=== PATIENT | male | born 1950 | race Caucasian/White ===

== ENCOUNTER 2022-11-13 08:30 | Inpatient (IN) ==
[2022-11-13] MEDS ORDERED: MoRPHine SULFATE 4 MG/ML 1 ML CARP\\VIAL IV STA (08:38)
[2022-11-13] MEDS ORDERED: ONDANSETRON INJ 2 MG/ML 2 ML VIAL IV STA (08:38)
[2022-11-13] MEDS ORDERED: SODIUM CHLORIDE 0.9% 1000ML 1,000 ML IV STA (08:38)
[2022-11-13] MEDS ORDERED: methylPREDNISolone 125 MG/2 ML VIAL IV STA (08:38)
--- NOTE | 2022-11-13 08:41 | Emergency Department Note ---
Impression & Plan Ambulatory dysfunction ADMIT ED Provider Note HPI: The patient is a 72-year-old gentleman with history of osteoarthritis, hypertension, who presents emergency department chief complaint of arthralgias. Patient states when he woke up this morning he had some intense pain in his bilateral ankles, bilateral knees, and bilateral wrist. He states it felt similar to pain he has had in the past with gout. Patient states yesterday his pain began he was using crutches to get around the house, today he was unable to use the crutches because of the pain he had in his various joints. Patient states he has been avoiding alcohol and certain foods to prevent gout flares. On arrival here to the ED the patient is alert, he is mildly tachycardic, noted to be febrile with temperature of 38.5, but otherwise in no acute distress. ROS: - Per HPI *Outpatient medications and allergy history reviewed. *Pertinent external medical records reviewed. PE: General: Alert, no acute distress HEENT: Normocephalic, trachea midline, full range of motion of the cervical sp ine without limitation or pain Eyes: Extraocular eye movement is intact, no scleral erythema Pulmonary: Clear to auscultation bilaterally, no wheezing Cardio: Regular rate and rhythm GI: Abdomen is soft to palpation : No suprapubic tenderness MSK: No evidence of trauma or malformation of the extremities, mild swelling of the right knee comparison to the left, no overlying erythema, range of motion is intact Skin: No evidence of rash Neuro: Alert, no focal deficits, symmetrical facial movements are appreciated, patient ambulates all extremities spontaneously Psychiatric: Cooperative equipment monitor phototypesetting: (As interpreted by myself): - An order was placed for continuous cardiac monitoring - Patient was noted to be in sinus rhythm with a rate of 95 Interventions provided in ED: -IV Solu-Medrol, Tylenol Differential Diagnosis: Gout flare, Lyme arthritis, osteoarthritis, sepsis, Warnicke's encephalopathy, acute on chronic dementia symptoms, hepatic encephalopathy, amongst other potential pathologies. Medical Decision Making: The patient is a 72-year-old gentleman who presented to the emergency department with multiple issues, patient originally arrived stating that he had arthralgias in his bilateral ankles, bilateral knees, and bilateral wrist. Aside from some chronic appearing swelling of the right knee consistent with osteoarthritis, physical exam is unremarkable for any evidence of septic arthritis. Range of motion is intact, no overlying erythema or warmth to any of the patient's joints. Patient was initially given a dose of IV Solu-Medrol as he had suspi cion for gout, given the location in multiple joints without any significant findings on physical exam I do not think this represents acute gout flare IV was established and lab work initiated, lab work does not show any evidence of leukocytosis, patient was later noted to have fever of 38.5 when he arrived. He denies any history of fevers at home and states that he is surprised by this. He does not have a headache, he answers my questions appropriately but is a poor historian. Upon review of his outpatient records, patient does have a history of drinking daily, no documented history of alcohol abuse but there are prescriptions in the chart for thiamine and folic acid. Patient states he does not know why these were ever prescribed to him. Lyme testing is negative, patient was given oral Tylenol and fever down trended. CT imaging of the head was obtained that shows no evidence of any acute intracranial process, he does have some involutional changes. Patient's friend and employer later arrived at the bedside, states he has concerns about the patient's ability to take care of himself at home recently, he has had chronic ambulatory dysfunction that seems to been worsening, upon review of his outpatient charts this has been an issue for him in regards to his osteoarthritis. He notes that the patient did have some feces on the floor in his apartment, patient states this is because he was using crutches and cannot get to the restroom. Unclear origin for the patient's fever at this time as his viral panel is also negative, urinalysis is pending as the patient stated he did not feel that he could urinate for us in the ED. Denies any recent dysuria. He seems to exhibit some confusion when asked about his historical issues, he is alert and oriented x3 here in the ED however, ammonia was obtained and is within normal limits. I do not feel the patient is safe for discharge at this time and he is actually in agreement, states he is having ambulatory issues and would like to be admitted to the hospital for further management, PT OT consultation, and follow-up on blood cultures. We will avoid initiating prophylactic antibiotics without known source for potential infection. Chest x-ray does not show any acute disease. Urinalysis is pending, patient and his friend at the bedside are in agreement to the above plan, case was discussed with the on-call midlevel provider for [facility] Hospitalist service, Georgina Garay, patient was placed for admission in stable condition. Consultants: Hospitalist service, [facility] Disposition discussion held by myself with: Patient and friend at the bedside Diagnosis: 1. Ambulatory dysfunction, acute 2. Joint pain/arthralgias, history of osteoarthritis 3. Fever of unknown origin 4. Inability to accomplish activities of daily living Disposition: Admission Polo Savage DO Emergency Medicine Past Med/Surg History Social History Smoking Status: Never smoker Preferred Language: Bengali Feels Safe at Home: Yes Allergies Allergies Allergy/AdvReac Type Severity Reaction Status Date / Time Sulfa (Sulfonamide Allergy Unknown ? Verified 11/13/22 12:57 Antibiotics) Home Meds Home Medications Medication Instructions Recorded Confirmed Naproxen (Aleve) 220 mg PO UD PRN Pain #0 tabs 02/15/15 allopurinol 100 mg tablet 100 mg PO QAM 11/13/22 11/13/22 Previous Rx's Medication Instructions Recorded ASPIRIN (ASPIRIN 81) 81 mg PO QAM 30 days ##0 02/17/15 BLOOD PRESSURE MONITORING unit ##1 02/17/15 (SPHYGMOMANOMETER ANEROID) Folic Acid 1 mg PO QAM 30 days #0 tabs 02/17/15 Lisinopril 10 mg PO QAM 30 days #0 tabs 02/17/15 METOPROLOL TARTRATE (LOPRESSOR) 12.5 mg PO BID 30 days #0 tabs 02/17/15 Thiamine HCl (Vitamin B-1) 100 mg PO QAM 30 days #0 tabs 02/17/15 Results & Data (ED) Vital Signs Vital Signs - 24 hr 11/13/22 08:41 11/13/22 08:41 11/13/22 08:46 Temperature 38.5 C H Temperature Source Oral Pulse Rate 120 H 120 H Pulse Rate [Right Finger] Pulse Rhythm [Right Finger] Pulse Strength [Right Finger] Respiratory Rate 18 Respiratory Effort / Characteristics Respiratory Depth Normal Respiratory Pattern Blood Pressure 157/94 H Blood Pressure [Right Arm] Blood Pressure Mean 115 Blood Pressure Mean [Right Arm] Blood Pressure Position [Right Arm] Pulse Oximetry 94 94 Oxygen Delivery Method Room Air Room Air Sepsis Recent Fever Within 48 Hours Yes Sepsis New/Unexplained Change in Mental Status No Sepsis Action Taken by Nursing Physician Notified 11/13/22 10:00 11/13/22 11:40 11/13/22 12:00 Temperature 37.1 C Temperature Source Oral Pulse Rate Pulse Rate [Right Finger] 109 H 109 H Pulse Rhythm [Right Finger] Regular Regular Pulse Strength [Right Finger] Normal Normal Respiratory Rate 18 18 Respiratory Effort / Characteristics Non-Labored Non-Labored Respiratory Depth Normal Normal Respiratory Pattern Regular Regular Blood Pressure Blood Pressure [Right Arm] 156/77 H 177/97 H Blood Pressure Mean Blood Pressure Mean [Right Arm] 103 123 Blood Pressure Position [Right Arm] Lying Pulse Oximetry 94 95 Oxygen Delivery Method Room Air Room Air Sepsis Recent Fever Within 48 Hours Sepsis New/Unexplained Change in Mental Status Sepsis Action Taken by Nursing Laboratory Data 11/13/22 08:56 11/13/22 08:56 Lab Results 11/13/22 11/13/22 11/13/22 Range/Units 08:56 08:56 08:56 WBC 9.76 (4.8-10.8) K/ul RBC 5.00 (4.70-6.10) M/uL Hgb 15.3 (14.0-18.0) g/dl Hct 44.6 (42.0-52.0) % MCV 89.2 (80.0-100.0) fL MCH 30.6 (25.0-34.0) pg MCHC 34.3 (32.0-36.0) g/dL RDW Std Deviation 38.9 (36.4-46.3) fL RDW Coeff of Chris 12.0 (11.5-14.5) % Plt Count 259 (130-400) K/uL MPV 9.7 (9.4-12.4) fL Immature Gran % (Auto) 0.3 % Neut % (Auto) 87.1 % Lymph % (Auto) 5.1 % [place] % (Auto) 7.3 % Eos % (Auto) 0.0 % Baso % (Auto) 0.2 % Neut # (Auto) 8.50 H (1.40-6.50) K/uL Lymph # (Auto) 0.50 L (1.2-3.4) K/uL [place] # (Auto) 0.71 H (0.11-0.59) K/uL Eos # (Auto) 0.00 (0-0.50) K/uL Baso # (Auto) 0.02 (0-0.2) K/uL Immature Gran # (Auto) 0.03 (0.01-0.20) K/uL Polychromasia 1+ Echinocytes 2+ Sodium 136 (136-145) mmol/L Potassium 4.2 (3.5-5.1) mmol/L Chloride 101 (98-107) mmol/L Carbon Dioxide 23 (21-32) mmol/L Anion Gap 12 H (3-11) BUN 22 (6-23) mg/dl Creatinine 1.02 (0.6-1.4) mg/dl Est Cr Clr Drug Dosing 78.7 ml/min Est GFR ( Amer) 84.1 ml/min Est GFR (Non-Af Amer) 72.6 ml/min BUN/Creatinine Ratio 21.6 H (10-20) Glucose 155 H (70-99(Fasting)) mg/dl Lactate (0.4-2.0) mmol/L Calcium 9.4 (8.6-10.3) mg/dl Total Bilirubin 3.1 H (0.2-1.0) mg/dl AST 19 (13-39) U/L ALT 19 (7-52) U/L Alkaline Phosphatase 55 (34-104) U/L Ammonia Total Protein 8.0 (6.0-8.3) gm/dl Albumin 4.1 (3.4-5.0) gm/dl Globulin 3.9 (2.5-4.0) gm/dl Albumin/Globulin Ratio 1.1 (0.9-2) Procalcitonin < 0.05 (0-0.5) ng/ml Ethyl Alcohol mg/dL (<10.0) mg/dl Adenovirus (PCR) (NotDetected) Anaplasma Smear See Comment Babesia Smear See Comment B. pertussis DNA (PCR) (NotDetected) B.parapertussis DNA PCR (NotDetected) Lyme Disease IgG Ab Negative (Negative) Lyme Disease IgM Ab Negative (Negative) C. pneumoniae DNA (PCR) (NotDetected) Coronavirus OC43 (PCR) (NotDetected) Coronavirus HKU1 (PCR) (NotDetected) Coronavirus 229E (PCR) (NotDetected) SARS-CoV-2 (PCR) (NotDetected) Coronavirus NL63 (PCR) (NotDetected) Human Metapneumovir PCR (NotDetected) Influenza Type A (PCR) (NotDetected) Influenza Type B (PCR) (NotDetected) M. pneumoniae (PCR) (NotDetected) Parainfluenza 1 (PCR) (NotDetected) Parainfluenza 2 (PCR) (NotDetected) Parainfluenza 3 (PCR) (NotDetected) Parainfluenza 4 (PCR) (NotDetected) RSV (PCR) (NotDetected) Entero/Rhino (PCR) (NotDetected) 11/13/22 11/13/22 11/13/22 Range/Units 08:56 09:03 09:20 WBC (4.8-10.8) K/ul RBC (4.70-6.10) M/uL Hgb (14.0-18.0) g/dl Hct (42.0-52.0) % MCV (80.0-100.0) fL MCH (25.0-34.0) pg MCHC (32.0-36.0) g/dL RDW Std Deviation (36.4-46.3) fL RDW Coeff of Chris (11.5-14.5) % Plt Count (130-400) K/uL MPV (9.4-12.4) fL Immature Gran % (Auto) % Neut % (Auto) % Lymph % (Auto) % [place] % (Auto) % Eos % (Auto) % Baso % (Auto) % Neut # (Auto) (1.40-6.50) K/uL Lymph # (Auto) (1.2-3.4) K/uL [place] # (Auto) (0.11-0.59) K/uL Eos # (Auto) (0-0.50) K/uL Baso # (Auto) (0-0.2) K/uL Immature Gran # (Auto) (0.01-0.20) K/uL Polychromasia Echinocytes Sodium (136-145) mmol/L Potassium (3.5-5.1) mmol/L Chloride (98-107) mmol/L Carbon Dioxide (21-32) mmol/L Anion Gap (3-11) BUN (6-23) mg/dl Creatinine (0.6-1.4) mg/dl Est Cr Clr Drug Dosing ml/min Est GFR ( Amer) ml/min Est GFR (Non-Af Amer) ml/min BUN/Creatinine Ratio (10-20) Glucose (70-99(Fasting)) mg/dl Lactate 1.4 (0.4-2.0) mmol/L Calcium (8.6-10.3) mg/dl Total Bilirubin (0.2-1.0) mg/dl AST (13-39) U/L ALT (7-52) U/L Alkaline Phosphatase (34-104) U/L Ammonia Total Protein (6.0-8.3) gm/dl Albumin (3.4-5.0) gm/dl Globulin (2.5-4.0) gm/dl Albumin/Globulin Ratio (0.9-2) Procalcitonin (0-0.5) ng/ml Ethyl Alcohol mg/dL < 10.0 (<10.0) mg/dl Adenovirus (PCR) Not Detected (NotDetected) Anaplasma Smear Babesia Smear B. pertussis DNA (PCR) Not Detected (NotDetected) B.parapertussis DNA PCR Not Detected (NotDetected) Lyme Disease IgG Ab (Negative) Lyme Disease IgM Ab (Negative) C. pneumoniae DNA (PCR) Not Detected (NotDetected) Coronavirus OC43 (PCR) Not Detected (NotDetected) Coronavirus HKU1 (PCR) Not Detected (NotDetected) Coronavirus 229E (PCR) Not Detected (NotDetected) SARS-CoV-2 (PCR) Not Detected (NotDetected) Coronavirus NL63 (PCR) Not Detected (NotDetected) Human Metapneumovir PCR Not Detected (NotDetected) Influenza Type A (PCR) Not Detected (NotDetected) Influenza Type B (PCR) Not Detected (NotDetected) M. pneumoniae (PCR) Not Detected (NotDetected) Parainfluenza 1 (PCR) Not Detected (NotDetected) Parainfluenza 2 (PCR) Not Detected (NotDetected) Parainfluenza 3 (PCR) Not Detected (NotDetected) Parainfluenza 4 (PCR) Not Detected (NotDetected) RSV (PCR) Not Detected (NotDetected) Entero/Rhino (PCR) Not Detected (NotDetected) 11/13/22 11/13/22 Range/Units 10:54 11:58 WBC (4.8-10.8) K/ul RBC (4.70-6.10) M/uL Hgb (14.0-18.0) g/dl Hct (42.0-52.0) % MCV (80.0-100.0) fL MCH (25.0-34.0) pg MCHC (32.0-36.0) g/dL RDW Std Deviation (36.4-46.3) fL RDW Coeff of Chris (11.5-14.5) % Plt Count (130-400) K/uL MPV (9.4-12.4) fL Immature Gran % (Auto) % Neut % (Auto) % Lymph % (Auto) % [place] % (Auto) % Eos % (Auto) % Baso % (Auto) % Neut # (Auto) (1.40-6.50) K/uL Lymph # (Auto) (1.2-3.4) K/uL [place] # (Auto) (0.11-0.59) K/uL Eos # (Auto) (0-0.50) K/uL Baso # (Auto) (0-0.2) K/uL Immature Gran # (Auto) (0.01-0.20) K/uL Polychromasia Echinocytes Sodium (136-145) mmol/L Potassium (3.5-5.1) mmol/L Chloride (98-107) mmol/L Carbon Dioxide (21-32) mmol/L Anion Gap (3-11) BUN (6-23) mg/dl Creatinine (0.6-1.4) mg/dl Est Cr Clr Drug Dosing ml/min Est GFR ( Amer) ml/min Est GFR (Non-Af Amer) ml/min BUN/Creatinine Ratio (10-20) Glucose (70-99(Fasting)) mg/dl Lactate (0.4-2.0) mmol/L Calcium (8.6-10.3) mg/dl Total Bilirubin (0.2-1.0) mg/dl AST (13-39) U/L ALT (7-52) U/L Alkaline Phosphatase (34-104) U/L Ammonia Cancelled 32.0 Total Protein (6.0-8.3) gm/dl Albumin (3.4-5.0) gm/dl Globulin (2.5-4.0) gm/dl Albumin/Globulin Ratio (0.9-2) Procalcitonin (0-0.5) ng/ml Ethyl Alcohol mg/dL (<10.0) mg/dl Adenovirus (PCR) (NotDetected) Anaplasma Smear Babesia Smear B. pertussis DNA (PCR) (NotDetected) B.parapertussis DNA PCR (NotDetected) Lyme Disease IgG Ab (Negative) Lyme Disease IgM Ab (Negative) C. pneumoniae DNA (PCR) (NotDetected) Coronavirus OC43 (PCR) (NotDetected) Coronavirus HKU1 (PCR) (NotDetected) Coronavirus 229E (PCR) (NotDetected) SARS-CoV-2 (PCR) (NotDetected) Coronavirus NL63 (PCR) (NotDetected) Human Metapneumovir PCR (NotDetected) Influenza Type A (PCR) (NotDetected) Influenza Type B (PCR) (NotDetected) M. pneumoniae (PCR) (NotDetected) Parainfluenza 1 (PCR) (NotDetected) Parainfluenza 2 (PCR) (NotDetected) Parainfluenza 3 (PCR) (NotDetected) Parainfluenza 4 (PCR) (NotDetected) RSV (PCR) (NotDetected) Entero/Rhino (PCR) (NotDetected) Administered Medications Discontinued Medications Acetaminophen (Acetaminophen 500 Mg Tab) 1,000 mg PO NOW STA Stop: 11/13/22 08:50 Last Admin: 11/13/22 09:15 Dose: 1,000 mg Documented By: VELIA Sodium Chloride (Nss 1000ml) 1,000 mls @ 999 mls/hr IV .Q1H1M STA Stop: 11/13/22 09:38 Last Infusion: 11/13/22 10:28 Dose: 0 mls/hr Documented By: Admin: 11/13/22 09:15 Dose: 999 mls/hr Documented By: AP Methylprednisolone (Methylprednisolone 125 Mg/2 Ml Vial) 125 mg IV NOW STA Stop: 11/13/22 08:39 Last Admin: 11/13/22 09:15 Dose: 125 mg Documented By: AP Morphine Sulfate (Morphine Sulfate 4 Mg/Ml 1 Ml Carp\Vial) 4 mg IV NOW STA Stop: 11/13/22 08:39 Last Admin: 11/13/22 09:09 Dose: Not Given Documented By: AP Ondansetron HCl (Ondansetron Inj 2 Mg/Ml 2 Ml Vial) 4 mg IV NOW STA Stop: 11/13/22 08:39 Last Admin: 11/13/22 09:09 Dose: Not Given Documented By: AP Imaging Data Radiologist's Impression: Chest X-Ray 11/13/22 08:49 SINGLE VIEW CHEST CLINICAL HISTORY: Fever FINDINGS: An AP, portable, upright chest radiograph is compared to study dated 02/15/2015. The heart is mildly enlarged noting atherosclerotic calcification of the thoracic aorta. The pulmonary vasculature is noncongested. Chronic interstitial thickening is similar to previous. The lungs and pleural spaces are clear noting mild dependent atelectasis. No pneumothorax is seen. The skeletal structures are osteopenic. The bony thorax is grossly intact. IMPRESSION: No active disease in the chest. ACT 112: Negative or not required by law. Electronically signed by: Vadim Rose M.D. 11/13/2022 9:[address] 11/13/22 10:54 CT SCAN OF THE BRAIN WITHOUT IV CONTRAST CLINICAL HISTORY: Change in mental status. COMPARISON STUDY: CT of the brain dated 02/15/2015. TECHNIQUE: Unenhanced axial CT scan of the brain is performed from the vertex to the skull base. A dose lowering technique was utilized adhering to the principles of ALARA. CT DOSE: 614.27 mGy.cm FINDINGS: Brain parenchyma: There is age-related involutional change noting [id number] patchy subcortical and periventricular microangiopathic disease. There is no hemorrhage, mass effect, or evidence of acute territorial ischemia by CT criteria. Dsouza-white matter differentiation is preserved. No extra-axial fluid collection is seen. Ventricles, sulci, cisterns: Prominent secondary to involutional change. Intracranial vasculature: There is atherosclerotic calcification of the cavernous carotid and vertebral arteries. Calvarium: Unremarkable. Sinuses and mastoids: There is mild mucosal thickening within the maxillary antra. The remaining visualized paranasal sinuses are clear. The mastoid air cells are well pneumatized. Orbits: The bony orbits are grossly intact. IMPRESSION: There is no hemorrhage, mass effect, or evidence of acute territorial ischemia by CT criteria. ACT 112: Negative or not required by law. Electronically signed by: Vadim Rose M.D. 11/13/2022 11:16 AM Discharge Plan Visit Data Chief Complaint: Foot Injury/Pain Stated Complaint: GOUT FLARE UP, PAIN IN FEET, ANKLES, KNEES, HIP ED Provider: Polo Savage Discharge Problem: Ambulatory dysfunction Forms Stand Alone Forms: [facility] Prescriptions Prescriptions: No Action Naproxen (Aleve) 220 MG tablet 220 mg PO UD PRN (Reason: Pain) Qty: 0 ASPIRIN (ASPIRIN 81) 81 MG tablet 81 mg PO QAM 30 Days Qty: 0 0RF Folic Acid 1 MG tablet 1 mg PO QAM 30 Days Qty: 0 0RF Lisinopril 5 MG tablet 10 mg PO QAM 30 Days Qty: 0 0RF METOPROLOL TARTRATE (LOPRESSOR) 25 MG tablet 12.5 mg PO BID 30 Days Qty: 0 0RF Thiamine HCl (Vitamin B-1) 100 MG tablet 100 mg PO QAM 30 Days Qty: 0 0RF BLOOD PRESSURE MONITORING (SPHYGMOMANOMETER ANEROID) 1 MIS MIS Qty: 1 0RF allopurinol 100 mg tablet 100 mg PO QAM Referrals Referrals: PCP,NO [Physician] -
[2022-11-13] MEDS ORDERED: ACETAMINOPHEN 500 MG TAB PO STA (08:49)
--- NOTE | 2022-11-13 09:08 | XRay Report ---
SINGLE VIEW CHEST CLINICAL HISTORY: Fever FINDINGS: An AP, portable, upright chest radiograph is compared to study dated 02/15/2015. The heart i s mildly enlarged noting atherosclerotic calcification of the thoracic aorta. The pulmonary vasculatu re is noncongested. Chronic interstitial thickening is similar to previous. The lungs and pleural spa rohan are clear noting mild dependent atelectasis. No pneumothorax is seen. The skeletal structures are osteopenic. The bony thorax is grossly intact. IMPRESSION: No active disease in the chest. ACT 112: Negative or not required by law. Electronically signed by: Vadim Rose M.D. 11/13/2022 9:07 AM
[2022-11-13 09:12] LABS: Basophils # (auto) 0.02 K/uL (0-0.2); Basophils % (auto) 0.2 %; Hematocrit (blood only) 44.6 % (42.0-52.0); Hemoglobin 15.3 g/dl (14.0-18.0); Immature Granulocytes # (auto) 0.03 K/uL (0.01-0.20); Immature Granulocytes % (auto) 0.3 %; Lymphocytes % (auto) 5.1 %; Mean Corpuscular Hemoglobin 30.6 pg (25.0-34.0); Mean Corpuscular Hgb Conc 34.3 g/dL (32.0-36.0); Mean Corpuscular Volume 89.2 fL (80.0-100.0); Mean Platelet Volume 9.7 fL (9.4-12.4); Monocytes # (auto) 0.71 K/uL (0.11-0.59); Monocytes % (auto) 7.3 %; Neutrophils % (auto) 87.1 %; Platelet Count 259 K/uL (130-400); RDW Standard Deviation 38.9 fL (36.4-46.3); White Blood Count 9.76 K/ul (4.8-10.8)
[2022-11-13 09:30] LABS: Albumin Globulin Ratio 1.1 (0.9-2); Albumin Level 4.1 gm/dl (3.4-5.0); BUN Creatinine Ratio 21.6 (10-20); Bilirubin,Total 3.1 mg/dl (0.2-1.0); Calcium 9.4 mg/dl (8.6-10.3); Creatinine Clr Calc Pharmacy 78.7 ml/min; Est GFR (African American) 84.1 ml/min; Est GFR (Non-African American) 72.6 ml/min; Globulin 3.9 gm/dl (2.5-4.0); Potassium 4.2 mmol/L (3.5-5.1)
[2022-11-13 09:42] LABS: Echinocytes 2+; Polychromasia 1+
[2022-11-13 09:58] LABS: Procalcitonin < 0.05 ng/ml (0-0.5)
[2022-11-13 10:04] LABS: Lyme Ab IgG w/WB Rflx Negative (Negative); Lyme Ab IgM w/WB Rflx Negative (Negative)
[2022-11-13 10:30] LABS: Adenovirus PCR Not Detected (NotDetected); Bordetella parapertussis PCR Not Detected (NotDetected); Bordetella pertussis PCR Not Detected (NotDetected); Chlamydia pneumoniae PCR Not Detected (NotDetected); Coronavirus 229E PCR Not Detected (NotDetected); Coronavirus CoV-2 (COVID19)PCR Not Detected (NotDetected); Coronavirus HKU1 PCR Not Detected (NotDetected); Coronavirus NL63 PCR Not Detected (NotDetected); Coronavirus OC43PCR Not Detected (NotDetected); Human Metapneumovirus PCR Not Detected (NotDetected); Influenza A PCR Not Detected (NotDetected); Influenza B PCR Not Detected (NotDetected); Mycoplasma pneumoniae PCR Not Detected (NotDetected); Parainfluenza Virus 1 PCR Not Detected (NotDetected); Parainfluenza Virus 2 PCR Not Detected (NotDetected); Parainfluenza Virus 3 PCR Not Detected (NotDetected); Parainfluenza Virus 4 PCR Not Detected (NotDetected); Respiratory Syncytial VirusPCR Not Detected (NotDetected); Rhinovirus/Enterovirus PCR Not Detected (NotDetected)
--- NOTE | 2022-11-13 11:17 | CT Scan Report ---
CT SCAN OF THE BRAIN WITHOUT IV CONTRAST CLINICAL HISTORY: Change in mental status. COMPARISON STUDY: CT of the brain dated 02/15/2015. TECHNIQUE: Unenhanced axial CT scan of the brain is performed from the vertex to the skull base. A do se lowering technique was utilized adhering to the principles of ALARA. CT DOSE: 614.27 mGy.cm FINDINGS: Brain parenchyma: There is age-related involutional change noting dryi-sg-pbsmhcvy patchy subcortical and periventricular microangiopathic disease. There is no hemorrhage, mass effect, or evidence of [place] territorial ischemia by CT criteria. Dsouza-white matter differentiation is preserved. No extra-axi al fluid collection is seen. Ventricles, sulci, cisterns: Prominent secondary to involutional change. Intracranial vasculature: There is atherosclerotic calcification of the cavernous carotid and vertebr al arteries. Calvarium: Unremarkable. Sinuses and mastoids: There is mild mucosal thickening within the maxillary antra. The remaining visu alized paranasal sinuses are clear. The mastoid air cells are well pneumatized. Orbits: The bony orbits are grossly intact. IMPRESSION: There is no hemorrhage, mass effect, or evidence of acute territorial ischemia by CT aman briggs. ACT 112: Negative or not required by law. Electronically signed by: Vadim Rose M.D. 11/13/2022 11:16 AM
[2022-11-13] MEDS ORDERED: THIAMINE HCL 100 MG in SYRINGE 9 ML IV STA (11:56)
[2022-11-13] MEDS ORDERED: FOLIC ACID 1 MG in SYRINGE 9.8 ML IV STA (11:56)
[2022-11-13] MEDS ORDERED: NAPROXEN 250 MG TAB PO PRN (13:17)
[2022-11-13] MEDS ORDERED: amLODIPine BESYLATE 5 MG TAB PO ONE (13:17)
[2022-11-13] MEDS ORDERED: METOPROLOL TARTRATE 25 MG TAB PO STA (13:17)
--- NOTE | 2022-11-13 13:18 | History & Physical Report ---
Date of Service November 13, 2022 Assessment & Plan (1) Ambulatory dysfunction: (2) Joint pain: (3) Gout: (4) Lower urinary tract symptoms: (5) Fever: (6) BPH (benign prostatic hyperplasia): (7) Hyperlipidemia: (8) Hypertension: Plan This is a 72-year-old male with PMH of hypertension, hyperlipidemia, prediabetes, generalized osteoarthritis, BPH, alcohol use and other medical problems listed below who presents with joint aches and ambulatory dysfunction x3 days. Joint pain Worsening ambulatory dysfunction History of underlying gout except exam not clinically consistent with acute gout flare, uric acid levels normal Does have history of severe osteoarthritis on outpatient imaging Given IV Solu-Medrol in ED, continue naproxen and Tylenol as needed Able to stand with assistance Fall precautions, PT OT evaluation Urinary incontinence Friend reported urinary incontinence at home although ? 2/2 ambulatory dysfunction Now experiencing inability to urinate -we will obtain UA with straight cath History of BPH on Flomax Bladder scan as needed Fever T: 38.5 on admission, patient denies fever at home although poor historian Follow blood cultures No leukocytosis, respiratory PCR negative, Lyme serology negative although Anaplasma DNA still pending, chest x-ray without acute changes, awaiting UA HTN Poor medication compliance per outpatient records BP 181/85, given missed AM amlodipine and Lopressor doses CT head without acute intracranial findings History of alcohol use Endorses ~12 beers / week but reports he does not drink every day, no h/o withdrawal issues. Chart indicates years of chronic heavy use Supposed to be taking thiamine and folic acid but ran out 1 mo ago - resumed today Poor historian with ? dementia, CT head without acute intracranial findings but mentions involutional changes Inability to care for oneself at home 2/2 ambulatory dysfunction, ? dementia PT/OT otilio, case mgmt assistance appreciated DVT Ppx: SQ lovenox Code status: FULL PCP: Live Magana Dispo: Admitted to [facility] Patient seen in collaboration with Dr. Crockett. Please see addendum. History of Present Illness Chief Complaint: Joint aches Primary Care Provider: Sherwin Magana, DO This is a 72-year-old male with PMH of hypertension, hyperlipidemia, prediabetes, generalized osteoarthritis, BPH, alcohol use and other medical problems listed below who presents with joint aches and ambulatory dysfunction x3 days. Woke up today with worsening pain in bilateral knees, ankles and left wrist. States that he has had gout flares in the past to which this feels similar but this is more severe. Has been using crutches to ambulate around the house for the past 2 days but this morning, he was unable to get up even while using crutches due to the pain. Called his friend/employer to bring him in to the ED for further evaluation. His friend notes patient was incontinent of urine and stool based on how the apartment appeared, but unclear if this was due to to patient unable to ambulate to the restroom on his own. Patient denies having any urinary or fecal incontinence. Friend states patient is normally alert and oriented with better memory recall that he has been in the past few days. History of chronic alcohol use endorsing 2-3 beers every other day but states he has not had issues with alcohol withdrawal in the past. Cannot tell me the last drink he had, but did purchase alcohol last week. Has historically tried to avoid drinking when he has a gout flare. Is prescribed thiamine and folate but was uncertain why and has not taken them since he ran out a month ago. Usually has urinary frequency due to BPH but has been unable to urinate today. Denies any fever or chills at home. No lightheadedness, chest pain, shortness of breath, nausea, abdominal pain, dysuria, diarrhea or constipation. Took his gout medication prior to arrival but did not take antihypertensives. Allergies Allergy/AdvReac Type Severity Reaction Status Date / Time Sulfa (Sulfonamide Allergy Unknown ? Verified 11/13/22 12:57 Antibiotics) Home Medications Medication Instructions Recorded Confirmed Type allopurinol 100 mg tablet 100 mg PO QAM 11/13/22 11/13/22 History amlodipine 10 mg tablet 10 mg PO QAM 11/13/22 11/13/22 History aspirin 81 mg tablet,delayed 81 mg PO DAILY 11/13/22 11/13/22 History release folic acid 1 mg tablet 1 mg PO DAILY 11/13/22 11/13/22 History lisinopril 20 mg tablet 20 mg PO HS 11/13/22 11/13/22 History metoprolol tartrate 25 mg tablet 25 mg PO BID 11/13/22 11/13/22 History multivitamin 1 tab PO QAM 11/13/22 11/13/22 History naproxen 500 mg tablet 500 mg PO BID PRN Pain 11/13/22 11/13/22 History rosuvastatin 20 mg tablet 20 mg PO QAM 11/13/22 11/13/22 History tamsulosin 0.4 mg capsule 0.4 mg PO QAM 11/13/22 11/13/22 History thiamine HCl (vitamin B1) 100 mg 0 mg PO DAILY 11/13/22 11/13/22 History tablet Past Med/Surg History Medical History Alcohol use BPH (benign prostatic hyperplasia) Gout Hyperlipidemia Hypertension Surgical History S/P left knee arthroscopy Family History (Updated 11/13/22 @ 14:11 by Georgina Garay PA-C) Father Brain tumor Social History (Updated 11/13/22 @ 14:11 by Georgina Garay PA-C) Smoking Status: Never smoker Hx Alcohol Use: Yes Alcohol type: beer Alcohol Intake Frequency: 4 or More x per/Week Hx Substance Use: No Preferred Language: Togolese Communication Ability: Effective 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 Physical Exam Physical Exam: General Appearance: WD/WN, vitals as above, NAD, sitting up in bed, pleasant, conversing easily, appears flushed Head: normocephalic, atraumatic Eyes: normal inspection, PERRL, conjunctivae normal, anicteric sclerae ENT: external ear and nose normal, oropharynx normal Neck: normal visual inspection, trachea midline, no thyromegaly Respiratory: normal respiratory effort, lungs clear to auscultation, no wheeze, rales, rhonchi. No accessory muscle use Cardiovascular: tachycardic rate, regular rhythm, no murmur, normal peripheral pulses, no BLE edema. Vessels: no JVD Chest: normal inspection of chest Abdomen/GI: normal bowel sounds, soft, nontender, no hepatosplenomegaly Extremities/Musculoskeletal: no cyanosis or clubbing, extremities motor strength 5/5. OA changes noted on bilateral knees and feet Neurologic: PERRL, EOMI, accommodation nl, no face palsy, no dysarthria, CN's II-XI intact bilaterally and moves all extremities Psychiatric: A+Ox3, euthymic affect Skin: no rashes, normal color, warm/dry Results & Data Results & Data Vital Signs (Past 12 Hours) Vital Signs Temp Pulse Pulse Resp BP BP Pulse Ox 11/13/22 12:00 109 H 18 177/97 H 95 11/13/22 11:40 37.1 C 11/13/22 10:00 109 H 18 156/77 H 94 11/13/22 08:46 120 H 11/13/22 08:41 94 11/13/22 08:41 38.5 C H 120 H 18 157/94 H 94 O2 Del Method 11/13/22 12:00 Room Air 11/13/22 11:40 11/13/22 10:00 Room Air 11/13/22 08:46 11/13/22 08:41 Room Air 11/13/22 08:41 Room Air Laboratory Results Short CBC 11/13/22 Range/Units 08:56 WBC 9.76 (4.8-10.8) K/ul Hgb 15.3 (14.0-18.0) g/dl Hct 44.6 (42.0-52.0) % Plt Count 259 (130-400) K/uL BMP 11/13/22 08:56 Sodium 136 Potassium 4.2 Chloride 101 Carbon Dioxide 23 BUN 22 Creatinine 1.02 Glucose 155 H Calcium 9.4 Liver Function 11/13/22 Range/Units 08:56 Total Bilirubin 3.1 H (0.2-1.0) mg/dl AST 19 (13-39) U/L ALT 19 (7-52) U/L Alkaline Phosphatase 55 (34-104) U/L Albumin 4.1 (3.4-5.0) gm/dl Diagnostic Findings Chest X-Ray 11/13/22 08:49 SINGLE VIEW CHEST CLINICAL HISTORY: Fever FINDINGS: An AP, portable, upright chest radiograph is compared to study dated 02/15/2015. The heart is mildly enlarged noting atherosclerotic calcification of the thoracic aorta. The pulmonary vasculature is noncongested. Chronic inter stitial thickening is similar to previous. The lungs and pleural spaces are clear noting mild dependent atelectasis. No pneumothorax is seen. The skeletal structures are osteopenic. The bony thorax is grossly intact. IMPRESSION: No active disease in the chest. ACT 112: Negative or not required by law. Electronically signed by: Vadim Rose M.D. 11/13/2022 9:[address] 11/13/22 10:54 CT SCAN OF THE BRAIN WITHOUT IV CONTRAST CLINICAL HISTORY: Change in mental status. COMPARISON STUDY: CT of the brain dated 02/15/2015. TECHNIQUE: Unenhanced axial CT scan of the brain is performed from the vertex to the skull base. A dose lowering technique was utilized adhering to the principles of ALARA. CT DOSE: 614.27 mGy.cm FINDINGS: Brain parenchyma: There is age-related involutional change noting [id number] patchy subcortical and periventricular microangiopathic disease. There is no hemorrhage, mass effect, or evidence of acute territorial ischemia by CT criteria. Dsouza-white matter differentiation is preserved. No extra-axial fluid collection is seen. Ventricles, sulci, cisterns: Prominent secondary to involutional change. Intracranial vasculature: There is atherosclerotic calcification of the cavernous carotid and vertebral arteries. Calvarium: Unremarkable. Sinuses and mastoids: There is mild mucosal thickening within the maxillary antra. The remaining visualized paranasal sinuses are clear. The mastoid air cells are well pneumatized. Orbits: The bony orbits are grossly intact. IMPRESSION: There is no hemorrhage, mass effect, or evidence of acute territorial ischemia by CT criteria. ACT 112: Negative or not required by law. Electronically signed by: Vadim Rose M.D. 11/13/2022 11:16 AM Code Status & VTE Plan VTE Prophylaxis Plan VTE Prophylaxis will be ordered: Yes Supervising Physician Co-Signing Physician Notes Patient was seen and examined independently. Chart reviewed. Case discussed with IRINA
[2022-11-13 13:25] LABS: Uric Acid 5.8 mg/dl (2.6-7.2)
[2022-11-13] MEDS ORDERED: ONDANSETRON INJ 2 MG/ML 2 ML VIAL IV PRN (14:51)
[2022-11-13] MEDS ORDERED: POLYETHYLENE (MIRALAX) 17 GM PACK PO PRN (14:51)
[2022-11-13] MEDS: cefTRIAXone SODIUM 2,000 MG in DEXTROSE 5% 50 ML IV SCH (16:07)
[2022-11-13] MEDS: ENOXAPARIN INJ 40 MG/0.4 ML SYR SQ SCH (16:07)
[2022-11-13] MEDS: METOPROLOL TARTRATE 25 MG TAB PO SCH (21:08)
[2022-11-13] MEDS: lisinopril 20 MG TAB PO SCH (21:08)
[2022-11-14 00:29] LABS: Appearance Urine Clear (Clear); Bacteria Urine Automated Negative (Negative); Blood Urine Negative (Negative); Color Urine Dark Yellow; Glucose Urine UA Negative (Negative); Ketones Urine 2+ (Negative); Leukocyte Esterase Urine Negative (Negative); Nitrite Urine Negative (Negative); Protein Urine Trace (Negative); RBC Urine Automated 0-4 /hpf (0-4); Specific Gravity Urine 1.021 (1.000-1.030); Urobilinogen Urine Positive (Negative); pH Urine 5.5 (4.5-7.5)
[2022-11-14 00:30] LABS: Bilirubin Urine 1+ (Negative)
[2022-11-14 06:16] LABS: Hematocrit (blood only) 42.3 % (42.0-52.0); Hemoglobin 14.6 g/dl (14.0-18.0); Mean Corpuscular Hemoglobin 30.4 pg (25.0-34.0); Mean Corpuscular Hgb Conc 34.5 g/dL (32.0-36.0); Mean Corpuscular Volume 88.1 fL (80.0-100.0); Platelet Count 255 K/uL (130-400); RDW Coefficient of Variation 11.7 % (11.5-14.5); RDW Standard Deviation 38.1 fL (36.4-46.3); White Blood Count 12.98 K/ul (4.8-10.8)
[2022-11-14 06:34] LABS: BUN Creatinine Ratio 26.6 (10-20); Calcium 9.2 mg/dl (8.6-10.3); Creatinine Clr Calc Pharmacy 102.3 ml/min; Est GFR (African American) 103.2 ml/min; Est GFR (Non-African American) 89.1 ml/min; Potassium 4.1 mmol/L (3.5-5.1)
[2022-11-14] MEDS: MULTIVITAMIN TAB PO SCH (08:02)
[2022-11-14] MEDS: amLODIPine BESYLATE 5 MG TAB PO SCH (08:02)
[2022-11-14] MEDS: FOLIC ACID 1 MG TAB PO SCH (08:02)
[2022-11-14] MEDS: METOPROLOL TARTRATE 25 MG TAB PO SCH ×2 (08:02→21:07)
[2022-11-14] MEDS: THIAMINE HCL 100 MG TAB PO SCH (08:02)
[2022-11-14] MEDS: TAMSULOSIN HCL 0.4 MG CAP PO SCH (08:02)
[2022-11-14] MEDS: allopurinoL 100 MG TAB PO SCH (08:02)
[2022-11-14] MEDS: ROSUVASTATIN CALCIUM 20 MG TAB PO SCH (08:02)
[2022-11-14] MEDS: ASPIRIN 81 MG ECTAB PO SCH (08:02)
--- NOTE | 2022-11-14 11:47 | Hospitalist Progress Note ---
Date of Service November 14, 2022 Assessment & Plan (1) Ambulatory dysfunction: (2) Joint pain: (3) Gout: (4) Lower urinary tract symptoms: (5) Fever: (6) BPH (benign prostatic hyperplasia): (7) Hyperlipidemia: (8) Hypertension: Plan This is a 72-year-old male with PMH of hypertension, hyperlipidemia, prediabetes, generalized osteoarthritis, BPH, alcohol use and other medical problems listed below who presents with joint aches and ambulatory dysfunction x3 days. Joint pain Worsening ambulatory dysfunction History of underlying gout Possible gout flare based on history Also has severe osteoarthritis on outpatient imaging Got IV Solu-Medrol in ED Continue naproxen and Tylenol as needed Fall precautions PT OT evaluation Urinary incontinence Friend reported urinary incontinence at home although ? 2/2 ambulatory dy sfunction History of BPH on Flomax Per RN, he had some urinary incontinence yesterday. Patient reports no urinary problems today Will monitor Fever T: 38.5 on admission Denied fever at home Follow blood cultures Infectious workup: UA, CXR, resp PCR negative so far. Lyme tests pending Hypertension Poor medication compliance per outpatient records BP 181/85 on presentation Currently controlled on home amlodipine, lisinopril and Lopressor History of alcohol use He reports to me last drink is a week or so ago Supposed to be taking thiamine and folic acid but ran out 1 mo ago - resumed today Inability to care for oneself at home 2/2 ambulatory dysfunction, ? dementia PT/OT eval CM DVT Ppx: SQ lovenox Code status: FULL PCP: Live Magana I spent a total of 45 minutes coordinating, documenting and providing care for this patient excluding time spent in performance of separately billed services Admission and Anticipated Discharge Date Admission Date: November 13, 2022 Subjective Patient seen and examined. Reports left foot pain is improved. Reported that has been having foot pain started on the left and some on the right around the ball of the feet started 6 days ago. He also reported worsening of his chronic right knee pain. Patient lives alone and because of the pain he has been difficult to get up and move around He denied fever, chills, nausea, vomiting, abd pain, diarrhea, dysuria, freq Reported urinary incontinence at home and stated he couldn't get up to go urinate Currently reports left foot pain is improved Physical Exam Constitutional: + well hydrated; no acute distress Eyes: PERRL, conjunctivae normal, anicteric sclerae ENMT: external ear and nose normal, oropharynx normal Respiratory: normal respiratory effort, lungs clear to auscultation Cardiovascular: Rate/Rhythm: regular rate and regular rhythm S1 S2 Gastrointestinal (Abdomen): normal bowel sounds, soft, nontender, no hepatosplenomegaly Musculoskeletal: No pedal edema. No noted swelling/erythema on exam of both feet No swelling/tenderness around both knees Neurologic: PERRL, EOMI, accommodation nl, no face palsy, no dysarthria Psychiatric: A+Ox3, euthymic affect Results & Data Results & Data Vital Signs (Past 12 Hours) Vital Signs Temp Pulse Pulse Resp BP BP Pulse Ox 11/14/22 11:04 36.5 C 77 20 123/72 94 11/14/22 08:00 11/14/22 07:32 36.5 C 77 20 117/72 93 11/14/22 07:24 85 11/14/22 03:04 36.5 C 83 18 134/74 95 11/14/22 01:37 86 O2 Del Method 11/14/22 11:04 Room Air 11/14/22 08:00 Room Air 11/14/22 07:32 Room Air 11/14/22 07:24 11/14/22 03:04 Room Air 11/14/22 01:37 Laboratory Results Abnormal lab results 11/14/22 11/14/22 11/14/22 Range/Units 05:22 05:22 Unknown WBC 12.98 H (4.8-10.8) K/ul BUN/Creatinine Ratio 26.6 H (10-20) Glucose 143 H (70-99(Fasting)) mg/dl Urine Protein Trace H (Negative) Urine Ketones 2+ H (Negative) Urine Bilirubin 1+ H (Negative) Urine Urobilinogen Positive H (Negative) U Epithel Cells (Auto) 5-10 H (0-5) /lpf
[2022-11-14] MEDS: ENOXAPARIN INJ 40 MG/0.4 ML SYR SQ SCH (15:41)
[2022-11-14] MEDS: cefTRIAXone SODIUM 2,000 MG in DEXTROSE 5% 50 ML IV SCH (15:42)
[2022-11-14] MEDS: ACETAMINOPHEN 325 MG TAB PO PRN (15:46)
[2022-11-14] MEDS: lisinopril 20 MG TAB PO SCH (21:08)
[2022-11-15 05:53] LABS: Hematocrit (blood only) 40.6 % (42.0-52.0); Hemoglobin 13.6 g/dl (14.0-18.0); Mean Corpuscular Hemoglobin 30.1 pg (25.0-34.0); Mean Corpuscular Hgb Conc 33.5 g/dL (32.0-36.0); Mean Corpuscular Volume 89.8 fL (80.0-100.0); Mean Platelet Volume 9.6 fL (9.4-12.4); Platelet Count 260 K/uL (130-400); RDW Standard Deviation 39.5 fL (36.4-46.3); Red Blood Count 4.52 M/uL (4.70-6.10); White Blood Count 8.27 K/ul (4.8-10.8)
[2022-11-15 06:09] LABS: BUN Creatinine Ratio 29.3 (10-20); Calcium 8.7 mg/dl (8.6-10.3); Creatinine Clr Calc Pharmacy 81.6 ml/min; Est GFR (African American) 87.2 ml/min; Est GFR (Non-African American) 75.2 ml/min
[2022-11-15] MEDS: TAMSULOSIN HCL 0.4 MG CAP PO SCH (08:05)
[2022-11-15] MEDS: METOPROLOL TARTRATE 25 MG TAB PO SCH ×2 (08:05→22:25)
[2022-11-15] MEDS: ASPIRIN 81 MG ECTAB PO SCH (08:05)
[2022-11-15] MEDS: MULTIVITAMIN TAB PO SCH (08:05)
[2022-11-15] MEDS: FOLIC ACID 1 MG TAB PO SCH (08:05)
[2022-11-15] MEDS: allopurinoL 100 MG TAB PO SCH (08:05)
[2022-11-15] MEDS: THIAMINE HCL 100 MG TAB PO SCH (08:05)
[2022-11-15] MEDS: ROSUVASTATIN CALCIUM 20 MG TAB PO SCH (08:05)
[2022-11-15] MEDS: amLODIPine BESYLATE 5 MG TAB PO SCH (08:05)
--- NOTE | 2022-11-15 11:03 | Hospitalist Progress Note ---
Date of Service November 15, 2022 Assessment & Plan (1) Ambulatory dysfunction: (2) Joint pain: (3) Gout: (4) Lower urinary tract symptoms: (5) Fever: (6) BPH (benign prostatic hyperplasia): (7) Hyperlipidemia: (8) Hypertension: Plan This is a 72-year-old male with PMH of hypertension, hyperlipidemia, prediabetes, generalized osteoarthritis, BPH, alcohol use and other medical problems listed below who presents with joint aches and ambulatory dysfunction x3 days. Joint pain Worsening ambulatory dysfunction History of underlying gout Possible gout flare based on history Also has severe osteoarthritis on outpatient imaging Got IV Solu-Medrol in ED Continue naproxen and Tylenol as needed Fall precautions PT OT evaluation noted Will keep patient another day to increase ambulatory status prior to dc home CM evaluating safe discharge home Urinary incontinence Friend reported urinary incontinence at home although ? 2/2 ambulatory dysfunction History of BPH on Flomax UA not suggestive of UTI Resolved so far. Fever T: 38.5 on admission Denied fever at home and none since after temp on admission Blood cultures negative so far Infectious workup: UA, CXR, resp PCR negative so far. Lyme tests negative Hypertension Poor medication compliance per outpatient records BP 181/85 on presentation Currently controlled on home amlodipine, lisinopril and Lopressor History of alcohol use Counseled on cessation of alcohol use DVT Ppx: SQ lovenox Code status: FULL PCP: Live Magana I spent a total of 35 minutes coordinating, documenting and providing care for this patient excluding time spent in performance of separately billed services Admission and Anticipated Discharge Date Admission Date: November 13, 2022 Subjective Patient seen and examined Reports left foot pain continues to improve States he is feeling stronger and able to ambulate better today Denied any dysuria, freq, urgency Denied any abd pain, nausea, vomiting, diarrhea Denied cough, chest pain, shortness of breath Physical Exam Constitutional: + well hydrated; no acute distress Eyes: PERRL, conjunctivae normal, anicteric sclerae ENMT: external ear and nose normal, oropharynx normal Respiratory: normal respiratory effort, lungs clear to auscultation Cardiovascular: Rate/Rhythm: regular rate and regular rhythm S1 S2 Gastrointestinal (Abdomen): normal bowel sounds, soft, nontender, no hepatosplenomegaly Musculoskeletal: No pedal edema. No tenderness across knee and feet Neurologic: PERRL, EOMI, accommodation nl, no face palsy, no dysarthria Psychiatric: A+Ox3, euthymic affect Results & Data Results & Data Vital Signs (Past 12 Hours) Vital Signs Temp Pulse Pulse Resp BP BP Pulse Ox 11/15/22 08:04 36.4 C L 83 16 157/82 H 95 11/15/22 07:27 85 11/15/22 03:25 36.5 C 77 20 126/75 94 11/15/22 01:09 74 11/14/22 23:29 36.7 C 75 20 117/71 93 O2 Del Method 11/15/22 08:04 Room Air 11/15/22 07:27 11/15/22 03:25 Room Air 11/15/22 01:09 11/14/22 23:29 Room Air Laboratory Results Abnormal lab results 11/15/22 11/15/22 Range/Units 05:35 05:35 RBC 4.52 L (4.70-6.10) M/uL Hgb 13.6 L (14.0-18.0) g/dl Hct 40.6 L (42.0-52.0) % Chloride 110 H (98-107) mmol/L Anion Gap 2 L (3-11) BUN 29 H (6-23) mg/dl BUN/Creatinine Ratio 29.3 H (10-20) Glucose 108 H (70-99(Fasting)) mg/dl
[2022-11-15] MEDS: cefTRIAXone SODIUM 2,000 MG in DEXTROSE 5% 50 ML IV SCH (14:52)
[2022-11-15] MEDS: ENOXAPARIN INJ 40 MG/0.4 ML SYR SQ SCH (14:52)
[2022-11-15] MEDS: ACETAMINOPHEN 325 MG TAB PO PRN (14:56)
[2022-11-15] MEDS: lisinopril 20 MG TAB PO SCH (21:39)
[2022-11-16 06:24] LABS: Hemoglobin 14.2 g/dl (14.0-18.0); Mean Corpuscular Volume 90.9 fL (80.0-100.0); Mean Platelet Volume 9.8 fL (9.4-12.4); Platelet Count 301 K/uL (130-400); RDW Standard Deviation 40.1 fL (36.4-46.3); Red Blood Count 4.73 M/uL (4.70-6.10)
[2022-11-16 06:38] LABS: BUN Creatinine Ratio 26.5 (10-20); Calcium 8.9 mg/dl (8.6-10.3); Creatinine Clr Calc Pharmacy 97.2 ml/min; Est GFR (African American) 101.2 ml/min; Est GFR (Non-African American) 87.3 ml/min
[2022-11-16] MEDS: THIAMINE HCL 100 MG TAB PO SCH (08:31)
[2022-11-16] MEDS: allopurinoL 100 MG TAB PO SCH (08:31)
[2022-11-16] MEDS: TAMSULOSIN HCL 0.4 MG CAP PO SCH (08:31)
[2022-11-16] MEDS: amLODIPine BESYLATE 5 MG TAB PO SCH (08:31)
[2022-11-16] MEDS: ROSUVASTATIN CALCIUM 20 MG TAB PO SCH (08:31)
[2022-11-16] MEDS: FOLIC ACID 1 MG TAB PO SCH (08:31)
[2022-11-16] MEDS: MULTIVITAMIN TAB PO SCH (08:31)
[2022-11-16] MEDS: ASPIRIN 81 MG ECTAB PO SCH (08:31)
[2022-11-16] MEDS: METOPROLOL TARTRATE 25 MG TAB PO SCH (09:42)
--- NOTE | 2022-11-16 12:24 | Discharge Summary ---
Date of Service November 16, 2022 Admission HPI Per Admitting Provider This is a 72-year-old male with PMH of hypertension, hyperlipidemia, prediabetes, generalized osteoarthritis, BPH, alcohol use and other medical problems listed below who presents with joint aches and ambulatory dysfunction x3 days. Woke up today with worsening pain in bilateral knees, ankles and left wrist. States that he has had gout flares in the past to which this feels similar but this is more severe. Has been using crutches to ambulate around the house for the past 2 days but this morning, he was unable to get up even while using crutches due to the pain. Called his friend/employer to bring him in to [facility] ED for further evaluation. His friend notes patient was incontinent of urine and stool based on how the apartment appeared, but unclear if this was due to to patient unable to ambulate to the restroom on his own. Patient denies having any urinary or fecal incontinence. Friend states patient is normally alert and oriented with better memory recall that he has been in the past few days. Histo ry of chronic alcohol use endorsing 2-3 beers every other day but states he has not had issues with alcohol withdrawal in the past. Cannot tell me the last drink he had, but did purchase alcohol last week. Has historically tried to avoid drinking when he has a gout flare. Is prescribed thiamine and folate but was uncertain why and has not taken them since he ran out a month ago. Usually has urinary frequency due to BPH but has been unable to urinate today. Denies any fever or chills at home. No lightheadedness, chest pain, shortness of breath, nausea, abdominal pain, dysuria, diarrhea or constipation. Took his gout medication prior to arrival but did not take antihypertensives. Admission Exam Per Admitting Provider General Appearance:WD/WN, vitals as above, NAD, sitting up in bed, pleasant, conversing easily, appears flushed Head: normocephalic, atraumatic Eyes:normal inspection, PERRL, conjunctivae normal, anicteric sclerae ENT: external ear and nose normal, oropharynx normal Neck: normal visual inspection, trachea midline, no thyromegaly Respiratory:normal respiratory effort, lungs clear to auscultation, no wheeze, rales, rhonchi. No accessory muscle use Cardiovascular:tachycardic rate, regular rhythm, no murmur, normal peripheral pulses, no BLE edema. Vessels: no JVD Chest: normal inspection of chest Abdomen/GI: normal bowel sounds, soft, nontender, no hepatosplenomegaly Extremities/Musculoskeletal: no cyanosis or clubbing, extremities motor strength 5/5. OA changes noted on bilateral knees and feet Neurologic: PERRL, EOMI, accommodation nl, no face palsy, no dysarthria, CN's II-XI intact bilaterally and moves all extremities Psychiatric:A+Ox3, euthymic affect Skin: no rashes, normal color, warm/dry Principal Diagnosis Ambulatory dysfunction Joint pains Discharge Exam Constitutional + well hydrated; no acute distress Eyes PERRL, conjunctivae normal, anicteric sclerae ENMT external ear and nose normal, oropharynx normal Respiratory normal respiratory effort, lungs clear to auscultation Cardiovascular Rate/Rhythm: regular rate and regular rhythm S1 S2 Gastrointestinal (Abdomen) normal bowel sounds, soft, nontender, no hepatosplenomegaly Musculoskeletal No pedal edema. No tenderness on palpation of feet and knees Neurologic PERRL, EOMI, accommodation nl, no face palsy, no dysarthria Psychiatric A+Ox3, euthymic affect Discharge Data Allergies Allergy/AdvReac Type Severity Reaction Status Date / Time Sulfa (Sulfonamide Allergy Unknown ? Verified 11/13/22 12:57 Antibiotics) Consultations 11/13/22 12:21 ED Decision to Admit Stat 11/13/22 12:44 ED Decision to Admit Stat Ordered Studies 11/13/22 10:54 CT head/brain wo con Stat Hospital Course (1) Ambulatory dysfunction: (2) Joint pain: (3) Gout: (4) Lower urinary tract symptoms: (5) Fever: (6) BPH (benign prostatic hyperplasia): (7) Hyperlipidemia: (8) Hypertension: Plan This is a 72-year-old male with PMH of hypertension, hyperlipidemia, prediabetes, generalized osteoarthritis, BPH, alcohol use and other medical problems listed below who presents with joint aches and ambulatory dysfunction x3 days. Joint pain Worsening ambulatory dysfunction History of underlying gout except exam not clinically consistent with acute gout flare, uric acid levels normal Does have history of severe osteoarthritis on outpatient imaging Given IV Solu-Medrol in ED, continue naproxen and Tylenol as needed Was evaluated by PT/OT and did well Script given for rolling walker Urinary incontinence Friend reported urinary incontinence at home although ? 2/2 ambulatory dysfunction Resolved Urinalysis not suggestive of UTI History of BPH on Flomax Fever T: 38.5 on admission, patient denies fever at home Infectious workup negative HTN Poor medication compliance per outpatient records BP 181/[address] head without acute intracranial findings BP normalized with resumption of home antihypertensives Reports he has all his BP meds at home History of alcohol use Endorses ~12 beers / week but reports he does not drink every day, no h/o withdrawal issues. Chart indicates years of chronic heavy use Supposed to be taking thiamine and folic acid but ran out 1 mo ago. Requested refill stating he has all his meds except thiamine and folic acid. Refill sent CT head without acute intracranial findings but mentions involutional changes Updated friend who is involved in his care Total Time Total Time Spent Total Time Spent (In Minutes): 50 Total Time Includes: Examination of the Patient, Discharge Planning, Medication Reconciliation and Other Discharge Plan Discharge Items Patient Disposition: Home - Home Health Services Reason For Visit: AMS, INABILITY TO CARE FOR SELF Discharge Diagnosis: Ambulatory dysfunction Joint pains Activity: Resume your previous activity Non-emergency contact: Primary Care Provider Call non-emergency contact if: you have any medication questions Follow-up/Referrals: Sherwin Magana DO [Primary Care Provider] - (Date & Time 11/24/2022 1:40 PM Provider Sherwin Magana DO Department [facility] ) Diet: Heart Healthy Addtl Attending Provider Instructions: Mr Sweet You were brought to the hospital due to weakness and joint pains. You were evaluated and managed in the hospital. You were evaluated by Physical and Occupational therapists. Your symptoms improved. You are being discharged home. It is very important that you follow up with your Primary Doctor. It was a pleasure taking care of you. Pending Studies at Discharge: No Stand-Alone Forms: My [employer], Smoking Cessation Medications and DC Order Prescriptions: New thiamine HCl (vitamin B1) 100 mg tablet 100 mg PO DAILY Qty: 30 0RF Continued allopurinol 100 mg tablet 100 mg PO QAM multivitamin Tablet 1 tab PO QAM lisinopril 20 mg tablet 20 mg PO HS aspirin 81 mg Tablet,Delayed Release (Dr/Ec) 81 mg PO DAILY Rx Instructions: ran out 1 month ago tamsulosin 0.4 mg capsule 0.4 mg PO QAM amlodipine 10 mg tablet 10 mg PO QAM rosuvastatin 20 mg tablet 20 mg PO QAM metoprolol tartrate 25 mg tablet 25 mg PO BID naproxen 500 mg Tablet 500 mg PO BID PRN (Reason: Pain) folic acid 1 mg Tablet 1 mg PO DAILY Qty: 30 0RF Rx Instructions: ran out one month ago Discontinued thiamine HCl (vitamin B1) 100 mg Tablet 0 mg PO DAILY Rx Instructions: ran out 1 month ago Discharge Orders: Discharge Order (Routine); Ordered 11/16/22 Ordered By: Mey Rao Admission Data Admit Date/Time: 11/13/22 13:13 Attending Provider: Mey Rao I. Admit Provider: Thompson Crockett Primary Care Provider: Sherwin Magana Other Providers: Thompson Crockett Other Interventions: Discharge Summary Assessment (RN) Last Done: 11/16/22 12:54
[2022-11-17 06:18] LABS: Babesia microti DNA Not Detected (Not Detected)
== END 2022-11-16 16:50 | disposition home or self-care (01) | DRG 554 ==
LOC: ED 08:30 → SUATTDRO 13:13 → 2W 13:13

== ENCOUNTER 2025-07-01 11:35 | Inpatient (IN) ==
--- NOTE | 2025-07-01 12:20 | Emergency Department Note ---
Impression & Plan Acute HFrEF (heart failure with reduced ejection fraction), Elevated troponin, Elevated brain natriuretic peptide (BNP) level, Shortness of breath ED Provider Note NAME: ERIK DARLING AGE: 74 SEX: M : 1950 ARRIVES VIA: Walk-In INFORMANT: Patient ED PROVIDER(S): Misha Awan DO CHIEF COMPLAINT: Worsening shortness of breath HPI: Patient is a 74-year-old male with a recent history of acute heart failure with reduced EF, elevated BNP, elevated troponin who presents to the ER for shortness of breath. He notes this has been getting worse since discharge. He notices swelling in the legs but is unsure of how much worse this is. He is okay when he is up standing. But when he lays down he becomes significantly short of breath and cannot breathe at all. Denies any chest pain. No belly pain. No nausea vomiting or diarrhea. No dysuria, urgency or frequency. No other exacerbating or remitting factors. ADDITIONAL HISTORY OBTAINED: Per HPI Chronic Medical/Social Conditions Affecting Care: Per HPI PAST MEDICAL HISTORY:See Below PAST SURGICAL HISTORY:See Below FAMILY HISTORY:See Below SOCIAL HISTORY:See Below HOME MEDICATIONS:See Below ALLERGIES:See Below VITALS:See Below PHYSICAL EXAMINATION: GENERAL: Sitting up in bed, alert, well appearing, well nourished, no distress, non-toxic EYE EXAM: normal conjunctiva. OROPHARYNX: no exudate, no erythema, lips, buccal mucosa, and tongue normal and mucous membranes are moist NECK: supple, no nuchal rigidity, no adenopathy, non-tender LUNGS: Clear to auscultation. Normal chest wall mechanics HEART: no murmurs, S1 normal and S2 normal ABDOMEN: abdomen soft, non-tender, normo-active bowel sounds, no masses, no rebound or guarding. UPPER EXTREMITIES: upper extremities are grossly normal. LOWER EXTREMITIES: Pitting edema in the bilateral lower extremities. Calves are equal bilaterally. NEURO EXAM: Normal sensorium, cranial nerves II-XII grossly intact, normal speech, no gross weakness of arms, no gross weakness of legs. MEDICAL DECISION MAKING: Patient is a 74-year-old male who presents ER for the above-stated complaint. IV was established and blood work was obtained. Labs show no significant leukocytosis or anemia. INR unremarkable. BMP on LFTs bilirubin and mag was unremarkable. Troponin mildly elevated at 24 but downward trending. BNP is slightly climbed. Does have pitting edema. He admits to significant shortness of breath with laying flat. No shortness of breath with exertion. Patient was just discharged within 48 hours and consequently was discussed with the hospitalist for further evaluation management treatment. Consults/Care Managements Discussions: Per [facility] Triage Nursing notes reviewed. Limited review of prior medical records performed Vital Signs: reviewed and remarkable for no significant abnormalities Differential diagnosis: Differential diagnoses includes but is not limited to pneumonia, bronchitis, COPD/Asthma exacerbation, pneumothorax, pulmonary embolism, congestive heart failure, acute coronary syndrome ER treatment provided: See below Diagnostics interpreted by me include EKG and cardiac monitoring as listed below: -Cardiac Monitoring: An order was placed for continuous cardiac monitoring. The monitor shows a rate of 90 with simus rhythm. -ECG: Sinus rhythm rate of 90 Normal axis PVCs QTc 447 T wave inversions are slightly new in V6 otherwise no change -Laboratory studies:Interpreted by me as stated above in MDM and shown below. Imaging studies: Xrays: As interpreted by me: Portable AP upright 1 view of the chest shows no focal infiltrate but does show effusions CTs show: none Procedures:none Critical Care: None Past Med/Surg History Problem List (Updated 07/01/25 @ 16:57 by Misha Awan DO) Shortness of breath (Acute) Acute HFrEF (heart failure with reduced ejection fraction) (Acute) Elevated brain natriuretic peptide (BNP) level (Acute) Elevated troponin (Acute) Medical History Ambulatory dysfunction Hypertension Hyperlipidemia BPH (benign prostatic hyperplasia) Gout Lower urinary tract symptoms Joint pain Fever Acute dyspnea Acute CHF Alcohol use Surgical History S/P left knee arthroscopy Family History Father Brain tumor Social History Smoking Status: Never smoker Second Hand Exposure: No; Do You Dip or Chew Tobacco: No; Hx Alcohol Use: Yes Alcohol type: wine Alcohol Intake Frequency: 4 or More x per/Week Hx Substance Use: No Preferred Language: [place] Communication Ability: Effective Security Alarm Technician Required: No Beliefs That Will Affect Care: None Current Living Situation: Alone Current Living Situation Comment: alone, 1 story Other Information That Helps Us Care for You: No Feels Safe at Home: Yes Safety Concerns: Feels Safe At This Time Assistive Devices: Denture - Upper and Denture - Lower Allergies Allergies Allergy/AdvReac Type Severity Reaction Status Date / Time Sulfa (Sulfonamide Allergy Unknown ? Verified 11/13/22 12:57 Antibiotics) Home Meds Home Medications Medication Instructions Recorded Confirmed allopurinol 100 mg tablet 100 mg PO QAM 11/13/22 07/01/25 aspirin 81 mg tablet,delayed 81 mg PO DAILY 11/13/22 07/01/25 release multivitamin 1 tab PO QAM 11/13/22 07/01/25 rosuvastatin 20 mg tablet 20 mg PO QAM 11/13/22 07/01/25 tamsulosin 0.4 mg capsule 0.4 mg PO QAM 11/13/22 07/01/25 Previous Rx's Medication Instructions Recorded folic acid 1 mg tablet 1 mg PO DAILY #30 tabs 11/16/22 thiamine HCl (vitamin B1) 100 mg 100 mg PO DAILY #30 tabs 11/16/22 tablet furosemide 40 mg tablet 40 mg PO QAM #30 tabs 06/28/25 losartan 50 mg tablet 50 mg PO HS #30 tabs 06/28/25 metoprolol succinate 50 mg 50 mg PO BID #60 tabs 06/28/25 tablet,extended release 24 hr potassium chloride 20 mEq 20 meq PO QAM #30 tabs 06/28/25 tablet,extended release(part/cryst) spironolactone 25 mg tablet 25 mg PO QAM #30 tabs 06/28/25 Results & Data (ED) Vital Signs Vital Signs - 24 hr 07/01/25 11:49 07/01/25 12:18 07/01/25 12:18 Temperature 36.4 C L Temperature Source Temporal Artery Scan Pulse Rate 90 Respiratory Rate 20 Respiratory Effort / Characteristics Spontaneous Short of Breath Respiratory Depth Normal Respiratory Pattern Regular Blood Pressure 154/88 H Blood Pressure Mean 110 Pulse Oximetry 96 96 96 Oxygen Delivery Method Room Air Room Air Room Air Sepsis Recent Fever Within 48 Hours No Sepsis New/Unexplained Change in Mental Status N/A Sepsis Action Taken by Nursing No Action Required 07/01/25 12:23 07/01/25 13:00 Temperature Temperature Source Pulse Rate 83 82 Respiratory Rate 26 H Respiratory Effort / Characteristics Respiratory Depth Respiratory Pattern Blood Pressure 146/81 H Blood Pressure Mean 102 Pulse Oximetry 95 Oxygen Delivery Method Room Air Sepsis Recent Fever Within 48 Hours Sepsis New/Unexplained Change in Mental Status Sepsis Action Taken by Nursing Laboratory Data 07/01/25 12:00 07/01/25 12:00 Lab Results 07/01/25 Range/Units 12:00 WBC 7.07 (4.8-10.8) K/ul RBC 4.69 L (4.70-6.10) M/uL Hgb 14.7 (14.0-18.0) g/dL Hct 43.9 (42.0-52.0) % MCV 93.6 (80.0-100.0) fL MCH 31.3 (25.0-34.0) pg MCHC 33.5 (32.0-36.0) g/dL RDW Std Deviation 45.6 (36.4-46.3) fL RDW Coeff of Chris 13.3 (11.5-14.5) % Plt Count 213 (130-400) K/uL MPV 10.9 (9.4-12.4) fL Immature Gran % (Auto) 0.3 % Neut % (Auto) 77.6 % Lymph % (Auto) 15.4 % [place] % (Auto) 5.5 % Eos % (Auto) 0.6 % Baso % (Auto) 0.6 % Neut # (Auto) 5.49 (1.40-6.50) K/uL Lymph # (Auto) 1.09 L (1.20-3.40) K/uL [place] # (Auto) 0.39 (0.11-0.59) K/uL Eos # (Auto) 0.04 (0.00-0.50) K/uL Baso # (Auto) 0.04 (0.00-0.20) K/uL Immature Gran # (Auto) 0.02 (0.01-0.20) K/uL PT 10.5 (9.0-12.0) Seconds INR 1.0 (0.9-1.1) APTT 27 (21-31) Seconds PTT Ratio 1.0 Sodium 138 (136-145) mmol/L Potassium 4.6 (3.5-5.1) mmol/L Chloride 107 (98-107) mmol/L Carbon Dioxide 25 (21-32) mmol/L Anion Gap 6 (3-11) BUN 17 (6-23) mg/dl Creatinine 0.87 (0.6-1.4) mg/dl Est Cr Clr Drug Dosing 92.3 ml/min eGFR 89.98 BUN/Creatinine Ratio 19.5 (10-20) Glucose 118 H (70-99(Fasting)) mg/dl Calcium 8.8 (8.6-10.3) mg/dl Total Bilirubin 0.9 (0.2-1.0) mg/dl AST 21 (13-39) U/L ALT 30 (7-52) U/L Alkaline Phosphatase 47 (34-104) U/L Troponin I High Sens 24.6 H (0-20) pg/ml B-Natriuretic Peptide 538 H (0-100) pg/ml Total Protein 7.3 (6.0-8.3) gm/dl Albumin 4.2 (3.4-5.0) gm/dl Globulin 3.1 (2.5-4.0) gm/dl Albumin/Globulin Ratio 1.4 (0.9-2) Lipase 28 (11-82) U/L Administered Medications Enoxaparin Sodium (Enoxaparin Inj 40 Mg/0.4 Ml Syr) 40 mg SQ Q24H FERN Stop: 07/31/25 16:59 Last Admin: 07/01/25 16:37 Dose: 40 mg Documented By: TLB Furosemide (Furosemide 40 Mg/4 Ml Vial) 40 mg IV [id number] FERN Stop: 07/31/25 16:59 Last Admin: 07/01/25 16:37 Dose: 40 mg Documented By: TLB Imaging Data Radiologist's Impression: Chest X-Ray 07/01/25 11:56 XR chest 1V portable CLINICAL HISTORY: Chest pain, nonspecific COMPARISON STUDY: Chest radiograph June 26, 2025. FINDINGS: Lung volumes are normal. There are suspected trace bilateral pleural effusions. Cardiomegaly is unchanged. Mediastinal contours are stable. Pulmonary edema has improved since prior exam. There is no consolidation to suggest pneumonia. Mild bibasilar densities or atelectasis. IMPRESSION: 1. Cardiomegaly. Interval resolution of pulmonary edema since chest radiograph of June 26, 2025. 2. Suspected trace bilateral pleural effusions. ACT 112: Negative or not required by law. Electronically signed by: Francesco Mendoza M.D. 07/01/2025 12:31 PM Discharge Plan Visit Data Chief Complaint: Shortness of Breath/Dyspnea Stated Complaint: FLUID IN CHEST SOB ED Provider: Misha Awan Discharge Problem: Acute HFrEF (heart failure with reduced ejection fraction), Elevated troponin, Elevated brain natriuretic peptide (BNP) level, Shortness of breath Condition: Fair
[2025-07-01 12:22] LABS: Hematocrit (blood only) 43.9 % (42.0-52.0); Hemoglobin 14.7 g/dL (14.0-18.0); Immature Granulocytes # (auto) 0.02 K/uL (0.01-0.20); Immature Granulocytes % (auto) 0.3 %; Mean Corpuscular Hemoglobin 31.3 pg (25.0-34.0); Mean Corpuscular Volume 93.6 fL (80.0-100.0); Platelet Count 213 K/uL (130-400); RDW Standard Deviation 45.6 fL (36.4-46.3); Red Blood Count 4.69 M/uL (4.70-6.10); White Blood Count 7.07 K/ul (4.8-10.8)
--- NOTE | 2025-07-01 12:32 | XRay Report ---
XR chest 1V portable CLINICAL HISTORY: Chest pain, nonspecific COMPARISON STUDY: Chest radiograph June 26, 2025. FINDINGS: Lung volumes are normal. There are suspected trace bilateral pleural effusions. Cardiomegal y is unchanged. Mediastinal contours are stable. Pulmonary edema has improved since prior exam. There is no consolidation to suggest pneumonia. Mild bibasilar densities or atelectasis. IMPRESSION: 1. Cardiomegaly. Interval resolution of pulmonary edema since chest radiograph of June 26, 2025. 2. Suspected trace bilateral pleural effusions. ACT 112: Negative or not required by law. Electronically signed by: Francesco Mendoza M.D. 07/01/2025 12:31 PM
[2025-07-01 12:41] LABS: Alanine Aminotransferase 30.0 U/L (7-52); Albumin Globulin Ratio 1.4 (0.9-2); Albumin Level 4.2 gm/dl (3.4-5.0); Alkaline Phosphatase 47.0 U/L (34-104); Anion Gap 6.0 (3-11); Bilirubin,Total 0.9 mg/dl (0.2-1.0); Blood Urea Nitrogen 17.0 mg/dl (6-23); Calcium 8.8 mg/dl (8.6-10.3); Carbon Dioxide 25.0 mmol/L (21-32); Chloride 107.0 mmol/L (98-107); Creatinine Clr Calc Pharmacy 92.3 ml/min; Globulin 3.1 gm/dl (2.5-4.0); Glucose 118.0 mg/dl (70-99(Fasting)); Lipase 28.0 U/L (11-82); Potassium 4.6 mmol/L (3.5-5.1); Sodium 138.0 mmol/L (136-145); Total Protein 7.3 gm/dl (6.0-8.3)
[2025-07-01 12:53] LABS: INR 1.0 (0.9-1.1); Partial Thromboplastin Time 27 Seconds (21-31); Prothrombin Time 10.5 Seconds (9.0-12.0)
--- NOTE | 2025-07-01 14:26 | History & Physical Report ---
Date of Service July 01, 2025 Assessment & Plan (1) Acute HFrEF (heart failure with reduced ejection fraction): (2) Elevated troponin: (3) Hypertension: (4) Hyperlipidemia: (5) Gout: (6) BPH (benign prostatic hyperplasia): Plan 74 year old male with PMH significant for HFrEF, hypertension, hyperlipidemia, prediabetes, BPH, chronic gout, and morbid obesity who presents to the ED on 07/01/2025 with orthopnea and SOB. Patient was recently admitted from 06/26- 06/28/2025 with acute HFrEF. HFrEF Patient presenting with orthopnea and SOB since last night Recent admission from 06/26-06/28 with med changes per Cardiology - patient notes compliance TTE on 06/26 revealed EF 40-45%, mild global hypokinesis of LV, grade II DD, mod dilation left atrium, mild aortic valve sclerosis without stenosis Weight is down 2kg in the last two days BNP 538 CXR slightly improved from prior Plan: -Admit to med tele under obs -IV lasix 40mg bid -Daily weights -I&Os -Continue losartan, toprol-xl, spironolactone as recommended by Cardiology last admission -Consult Cardiology for additional med recs Elevated troponin Troponin 24 with repeat pending - decreased from prior admission EKG without signs of ischemia Hypertension Continue losartan Hyperlipidemia Continue statin Gout Continue allopurinol BPH Continue tamsulosin DVT Prophylaxis: SQ Lovenox Code Status: DNR/DNI PCP: Dr Sherwin Magana Disposition: admit to med tele under obs Patient seen in collaboration with Dr Rich. Please see addendum. I spent a total of 70 minutes coordinating, documenting and providing care for this patient excluding time spent in the performance of separately billed services or time spent by another provider/QHP. Admission and Anticipated Discharge Date Admission Date: July 01, 2025 History of Present Illness Chief Complaint: SOB Primary Care Provider: Sherwin Magana, 74 year old male with PMH significant for HFrEF, hypertension, hyperlipidemia, prediabetes, BPH, chronic gout, and morbid obesity who presents to the ED on 07/01/2025 with orthopnea. Patient was recently admitted from 06/26-06/28/2025 with acute HFrEF. Patient reports he was doing okay since discharge until last night in the middle of the night when he woke up at 0200 feeling like he was drowning and had a panic attack. He reports he usually sleeps elevated and must have slid down while sleeping. He notes SOB at rest and with exertion and inability to take a deep breath approximately every third breath. He was told to return to the hospital if his symptoms do not get better, which is why he sought evaluation. He has not weighed himself at home and is unsure if his legs are more swollen. He reports compliance with the medications that were prescribed by recommendation of Cardiology at discharge two days ago. He denies fevers, chills, cough, chest pain, abdominal pain, N/V. We discussed admission for IV diuretics versus discussion with Cardiology for titration of medications to be taken at home but patient opted for admission and IV diuretics. Allergies Allergy/AdvReac Type Severity Reaction Status Date / Time Sulfa (Sulfonamide Allergy Unknown ? Verified 11/13/22 12:57 Antibiotics) Home Medications Medication Instructions Recorded Confirmed Type allopurinol 100 mg tablet 100 mg PO QAM 11/13/22 07/01/25 History aspirin 81 mg tablet,delayed 81 mg PO DAILY 11/13/22 07/01/25 History release multivitamin 1 tab PO QAM 11/13/22 07/01/25 History rosuvastatin 20 mg tablet 20 mg PO QAM 11/13/22 07/01/25 History tamsulosin 0.4 mg capsule 0.4 mg PO QAM 11/13/22 07/01/25 History folic acid 1 mg tablet 1 mg PO DAILY #30 tabs 11/16/22 07/01/25 Rx thiamine HCl (vitamin B1) 100 mg 100 mg PO DAILY #30 tabs 11/16/22 07/01/25 Rx tablet furosemide 40 mg tablet 40 mg PO QAM #30 tabs 06/28/25 07/01/25 Rx losartan 50 mg tablet 50 mg PO HS #30 tabs 06/28/25 07/01/25 Rx metoprolol succinate 50 mg 50 mg PO BID #60 tabs 06/28/25 07/01/25 Rx tablet,extended release 24 hr potassium chloride 20 mEq 20 meq PO QAM #30 tabs 06/28/25 07/01/25 Rx tablet,extended release(part/cryst) spironolactone 25 mg tablet 25 mg PO QAM #30 tabs 06/28/25 07/01/25 Rx Past Med/Surg History Problem List (Updated 07/01/25 @ 14:18 by JOANNE White) Acute HFrEF (heart failure with reduced ejection fraction) Elevated brain natriuretic peptide (BNP) level (Acute) Elevated troponin (Acute) Medical History Ambulatory dysfunction Hypertension Hyperlipidemia BPH (benign prostatic hyperplasia) Gout Lower urinary tract symptoms Joint pain Fever Acute dyspnea Acute CHF Alcohol use Surgical History S/P left knee arthroscopy Family History Father Brain tumor Social History Smoking Status: Never smoker Second Hand Exposure: No; Do You Dip or Chew Tobacco: No; Hx Alcohol Use: Yes Alcohol type: wine Alcohol Intake Frequency: 4 or More x per/Week Hx Substance Use: No Preferred Language: Central African Communication Ability: Effective Treatment Coordinator Required: No Beliefs That Will Affect Care: None Current Living Situation: Alone Current Living Situation Comment: alone, 1 story Feels Safe at Home: Yes Assistive Devices: None Review of Systems 2 Review of Systems: All systems reviewed & are unremarkable except as noted in HPI & below Physical Exam Physical Exam: Refer to exam by Dr. Rich Results & Data Results & Data Vital Signs (Past 12 Hours) Vital Signs Temp Pulse Resp BP Pulse Ox O2 Del Method 07/01/25 13:00 82 26 H 146/81 H 95 Room Air 07/01/25 12:23 83 07/01/25 12:18 96 Room Air 07/01/25 12:18 96 Room Air 07/01/25 11:49 36.4 C L 90 20 154/88 H 96 Room Air Laboratory Results Short CBC 07/01/25 Range/Units 12:00 WBC 7.07 (4.8-10.8) K/ul Hgb 14.7 (14.0-18.0) g/dL Hct 43.9 (42.0-52.0) % Plt Count 213 (130-400) K/uL BMP 07/01/25 12:00 Sodium 138 Potassium 4.6 Chloride 107 Carbon Dioxide 25 BUN 17 Creatinine 0.87 Glucose 118 H Calcium 8.8 Liver Function 07/01/25 Range/Units 12:00 Total Bilirubin 0.9 (0.2-1.0) mg/dl AST 21 (13-39) U/L ALT 30 (7-52) U/L Alkaline Phosphatase 47 (34-104) U/L Albumin 4.2 (3.4-5.0) gm/dl I have independently reviewed and interpreted patient's admitting labs including CBC, CMP, PTT, PT/INR, troponin, BNP Diagnostic Findings Chest X-Ray 07/01/25 11:56 XR chest 1V portable CLINICAL HISTORY: Chest pain, nonspecific COMPARISON STUDY: Chest radiograph June 26, 2025. FINDINGS: Lung volumes are normal. There are suspected trace bilateral pleural effusions. Cardiomegaly is unchanged. Mediastinal contours are stable. Pulmonary edema has improved since prior exam. There is no consolidation to suggest pneumonia. Mild bibasilar densities or atelectasis. IMPRESSION: 1. Cardiomegaly. Interval resolution of pulmonary edema since chest radiograph of June 26, 2025. 2. Suspected trace bilateral pleural effusions. ACT 112: Negative or not required by law. Electronically signed by: Francesco Mendoza M.D. 07/01/2025 12:31 PM ECG Additional Comments: I have independently reviewed and interpreted patient's admitting EKG which revealed: NSR with PVCs at a rate of 90bpm Code Status & VTE Plan Code Status DNR/DNI VTE Prophylaxis Plan VTE Prophylaxis will be ordered: Yes Supervising Physician Co-Signing Physician Notes Patient is a 74-year-old male with history of CHF with reduced EF, hypertension, hyperlipidemia, obesity and other medical problems presents with history of worsening shortness of breath, orthopnea, PND. He was recently discharged after being treated for CHF. Patient admits to taking his medications regularly as prescribed. He also admits to have worsening leg edema. Please review HPI for complete details of presentation. I personally reviewed blood work and imaging studies. Saturating well on room air. His troponin mildly elevated 24.6 better when compared to prior hospitalization. BNP elevated 538. Chest x-ray showed improved pulmonary edema and trace bilateral pleural effusions. EKG showed normal sinus rhythm with PVCs, incomplete left bundle branch block, nonspecific T wave changes. Physical Exam: Vitals signs as noted above General Appearance: Morbidly obese, no apparent distress Head: normocephalic, Atraumatic Eyes: normal inspection, EOMI Neck: supple, Trachea midline Respiratory/Chest: Normal breath sounds, basal crackles, No accessory muscle use Cardiovascular: S1, S2, No murmur Abdomen/GI:Soft, Non tender, Bowel sounds present Extremities/Musculoskeletal:normal inspection, 2-3+ B/L LE edema Neurologic/Psych:AAOX3, grossly no focal neurological deficits Skin: normal color, warm,+ eczematous rash on back Acute systolic heart failure Hold p.o. diuretics Agree with IV Lasix 40 mg twice a day Monitor I's and O's, daily weight, volume status Continue metoprolol succinate, losartan and Aldactone Cardiology consulted Monitor and replete electrolytes as needed I personally interviewed and examined the patient at bedside. I have reviewed the advanced practitioner's documentation on the date of service referred in note and agree with plan. Patient's care is coordinated with Debi RUBIO. Please refer to the documentation above for details of patient's presentation and for discussion of other issues. I spent a total [id number] coordinating, documenting, and providing care for this patient excluding time spent in the performance of separately billed services or time spent by another provider/QHP.
[2025-07-01 15:07] LABS: Magnesium 2.2 mg/dl (1.7-2.4)
--- NOTE | 2025-07-01 15:35 | Electrocardiogram Report ---
Test Reason : Blood Pressure : */* mmHG Vent. Rate : 90 BPM Atrial Rate : 90 BPM P-R Int : 166 ms QRS Dur : 106 ms QT Int : 366 ms P-R-T Axes : 40 28 -73 degrees QTcB Int : 447 ms Sinus rhythm with occasional Premature ventricular complexes Incomplete left bundle block Nonspecific T wave abnormality Abnormal ECG When compared with ECG of 28-Jun-2025 14:17, Nonspecific T wave abnormality now evident in Lateral leads Confirmed by Yovany Jordan ([id number]) on 07/01/2025 3:34:31 PM Referred By: REFERRED SELF Confirmed By: Yovany Jordan
[2025-07-01] MEDS ORDERED: POLYETHYLENE (MIRALAX) 17 GM PACK PO PRN (15:51)
[2025-07-01] MEDS ORDERED: ONDANSETRON INJ 2 MG/ML 2 ML VIAL IV PRN (15:51)
[2025-07-01] MEDS ORDERED: ACETAMINOPHEN 325 MG TAB PO PRN (15:51)
[2025-07-01] MEDS: FUROSEMIDE 40 MG/4 ML VIAL IV SCH (16:37)
[2025-07-01] MEDS: ENOXAPARIN INJ 40 MG/0.4 ML SYR SQ SCH (16:37)
[2025-07-01] MEDS: LOSARTAN POTASSIUM 50 MG TAB PO SCH (21:05)
[2025-07-01] MEDS: METOPROLOL SUCC 50MG EXT REL TAB PO SCH (21:05)
[2025-07-02 07:07] LABS: Hematocrit (blood only) 41.7 % (42.0-52.0); Hemoglobin 13.5 g/dL (14.0-18.0); Mean Corpuscular Hemoglobin 30.7 pg (25.0-34.0); Mean Corpuscular Volume 94.8 fL (80.0-100.0); Platelet Count 186 K/uL (130-400); RDW Standard Deviation 47.3 fL (36.4-46.3); Red Blood Count 4.40 M/uL (4.70-6.10); White Blood Count 5.51 K/ul (4.8-10.8)
[2025-07-02 07:44] LABS: Anion Gap 6.0 (3-11); Blood Urea Nitrogen 18.0 mg/dl (6-23); Calcium 8.6 mg/dl (8.6-10.3); Carbon Dioxide 27.0 mmol/L (21-32); Chloride 106.0 mmol/L (98-107); Creatinine Clr Calc Pharmacy 87.2 ml/min; Glucose 116.0 mg/dl (70-99(Fasting)); Magnesium 2.1 mg/dl (1.7-2.4); Potassium 4.2 mmol/L (3.5-5.1); Sodium 139.0 mmol/L (136-145)
[2025-07-02] MEDS: SPIRONOLACTONE 25 MG TAB PO SCH (08:39)
[2025-07-02] MEDS: MULTIVITAMIN TAB PO SCH (08:40)
[2025-07-02] MEDS: FOLIC ACID 1 MG TAB PO SCH (08:40)
[2025-07-02] MEDS: ASPIRIN 81 MG ECTAB PO SCH (08:40)
[2025-07-02] MEDS: THIAMINE HCL 100 MG TAB PO SCH (08:40)
[2025-07-02] MEDS: ROSUVASTATIN CALCIUM 20 MG TAB PO SCH (08:40)
[2025-07-02] MEDS: POTASSIUM CHLORIDE CRTAB 20 MEQ TABCR PO SCH (08:40)
[2025-07-02] MEDS: TAMSULOSIN HCL 0.4 MG CAP PO SCH (08:40)
--- NOTE | 2025-07-02 09:50 | Cardiology Consultation ---
Date of Consultation July 02, 2025 Assessment & Plan (1) Acute HFrEF (heart failure with reduced ejection fraction): (2) Hypertension: Plan Patient is a 74 year old male who was admitted with signs/symptoms of acute on chronic HFrEF with dyspnea, orthopnea, weight gain, edema. Recently admitted last week for similar symptoms - LVEF 40-45%. Treated with IV Lasix and started on appropriate medical therapies on discharge. No prior ischemic evaluation. (Apparently LVEF was 45% in 2015) Patient reports compliance with meds at home, but non compliance with diet/fluid intake. Started on Furosemide 40 mg IV BID on admission. Patient reports good urination/output with medication, but unfortunately this has not been recorded. Ordered I+O's to be measured Daily weight with standing scale. Fluid restriction of 1500 ml Low sodium diet. Continue spironolactone 25 mg daily Continue metoprolol and losartan. BP controlled. Continue ASA and statin. Minimally elevated troponin but flat around 25. This is improved from last weeks admission. Not indicative of ACS. Will need ischemic evaluation as an outpatient once fluid status has improved Case discussed with Dr. Osorio I spent a total of 60 minutes on the date of service in preparation, delivery, and documentation of the care provided to this patient, excluding any time spent in the performance of separately billed services. Svetlana Vanessa PA-C Department of Cardiology, [facility] This chart was completed in part utilizing Speech Voice Recognition Software. Grammatical errors, random word insertions, pronoun errors, and incomplete sentences are an occasional consequence of this system due to software limitations, ambient noise, and hardware issues. Any formal questions or concerns about the content, text, or information contained within the body of this dictation should be directly addressed to the provider for clarification. Supervising Physician Co-Signing Physician Notes I have personally performed a history and physical examination on the patient. I have reviewed the advance practitioner's documentation, and I agree with, and take responsibility for the plan of care. 74-year-old male presents with recurrent acute decompensated heart failure with mildly reduced ejection fraction. LV systolic dysfunction dating back to 2014. No recent ischemic evaluation on record. Current heart failure exacerbation li chele precipitate by dietary indiscretions and medication noncompliance. Patient appears to have limited insight into current medications. Recommend IV diuresis, Lasix 40 mg twice daily. Transition losartan to Entresto during hospitalization if affordable. Continue current dose of spironolactone and Toprol-XL. Monitor fluid balance, daily, GFR, and electrolytes. 1.5 g sodium restriction. 1.5 L fluid restriction during hospitalization. Cardiology will continue to follow throughout hospitalization. Dale Osorio DO, [facility] I spent a total of 40 minutes on the date of service in preparation, delivery, and documentation of the care provided to this patient, excluding any time spent in the performance of separately billed services. History of Present Illness Reason for Consultation: Acute HFrEF Requesting Physician: Terri Hospitalist Attending Physician: Dr. Osorio History of Present Illness Patient is a 74 year old male who presented to [facility] yesterday with complaints of worsening SOB, edema, fluid retention. Recent admission 06/26-06/29 for acute HFrEF. Treated with IV lasix with improved volume status. LVEF 40-45% with global hypokinesis, grade II diastolic dysfunction noted. He had an echo in 2014 that revealed mildly reduced LVEF at 45-50% but no further work up was completed. No prior ischemic evaluation. On 06/29 patient was discharged on appropriate medical therapies with losartan 50 mg daily, metoprolol succinate 50 mg BID, spironolactone 25 mg daily, furosemide 40 mg daily and potassium 20 meq daily (all new medications) and rosuvastatin 20 mg and ASA was continued. Amlodipine was also discontinued Per patient, he was compliant with all med changes when he returned home. He reports his weight was trending downward, but he felt he was becoming progressively SOB wiht orthopnea and iincreased edema since he returned home. He admits to significant dietary and fluid indiscretion and was not monitoring his intake. Upon admission, BNP was elevated at 538 Troponin also mildly elevated around 25 but improved from last admission. Chest xray with pulm vascular congestion He was started on IV lasix. Since admission, he reports frequent urination, however I+O's have not been measured. Weight was down 2 kg on admission (from discharge) and down additional 5 kg? At time of consult, patient resting in bed feeling better than admission. Still remains dyspneic with minimal exertion to the restroom.Still with LE edema. No chest pain. No dizziness. No palpitations. Allergies Allergy/AdvReac Type Severity Reaction Status Date / Time Sulfa (Sulfonamide Allergy Unknown ? Verified 11/13/22 12:57 Antibiotics) Home Medications Medication Instructions Recorded Confirmed Type allopurinol 100 mg tablet 100 mg PO QAM 11/13/22 07/01/25 History aspirin 81 mg tablet,delayed 81 mg PO DAILY 11/13/22 07/01/25 History release multivitamin 1 tab PO QAM 11/13/22 07/01/25 History rosuvastatin 20 mg tablet 20 mg PO QAM 11/13/22 07/01/25 History tamsulosin 0.4 mg capsule 0.4 mg PO QAM 11/13/22 07/01/25 History folic acid 1 mg tablet 1 mg PO DAILY #30 tabs 11/16/22 07/01/25 Rx thiamine HCl (vitamin B1) 100 mg 100 mg PO DAILY #30 tabs 11/16/22 07/01/25 Rx tablet furosemide 40 mg tablet 40 mg PO QAM #30 tabs 06/28/25 07/01/25 Rx losartan 50 mg tablet 50 mg PO HS #30 tabs 06/28/25 07/01/25 Rx metoprolol succinate 50 mg 50 mg PO BID #60 tabs 06/28/25 07/01/25 Rx tablet,extended release 24 hr potassium chloride 20 mEq 20 meq PO QAM #30 tabs 06/28/25 07/01/25 Rx tablet,extended release(part/cryst) spironolactone 25 mg tablet 25 mg PO QAM #30 tabs 06/28/25 07/01/25 Rx Patient History Medical History Ambulatory dysfunction Hypertension Hyperlipidemia BPH (benign prostatic hyperplasia) Gout Lower urinary tract symptoms Joint pain Fever Acute dyspnea Acute CHF Alcohol use Surgical History S/P left knee arthroscopy Family History Father Brain tumor Social History Smoking Status: Never smoker Second Hand Exposure: No; Do You Dip or Chew Tobacco: No; Hx Alcohol Use: Yes Alcohol type: wine Alcohol Intake Frequency: 4 or More x per/Week Hx Substance Use: No Preferred Language: Malagasy Communication Ability: Effective 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 Beliefs That Will Affect Care: None Current Living Situation: Alone Current Living Situation Comment: alone, 1 story Other Information That Helps Us Care for You: No Feels Safe at Home: Yes Safety Concerns: Feels Safe At This Time Assistive Devices: None Review of Systems Review of Systems: All systems reviewed & are unremarkable except as noted in HPI & below Physical Exam Constitutional: WD/WN, vitals as above + obese; no acute distress Neck: + thick neck Respiratory: + tachypneic (with conversational dyspne a) Auscultation: + crackles (B/L) Cardiovascular: Rate/Rhythm: regular rate and regular rhythm Vessels: + JVD Extremities: + edema (2+ b/l edema to knees) Gastrointestinal (Abdomen): Inspection/Auscultation: + abdomen distended Percussion/Palpation: abdomen soft; abdomen nontender Neurologic: PERRL, EOMI, accommodation nl, no face palsy, no dysarthria Results & Data Vital Signs (Past 12 Hours) Vital Signs Temp Pulse Pulse Resp BP Pulse Ox O2 Del Method 07/02/25 09:17 Room Air 07/02/25 07:59 36.6 C 70 16 123/79 91 Room Air 07/02/25 05:45 75 07/02/25 03:47 36.5 C 80 18 125/78 95 Room Air 07/01/25 23:44 36.5 C 77 18 117/76 96 Room Air 07/01/25 21:54 78 Laboratory Results Cardiac Enzymes 07/01/25 07/01/25 Range/Units 12:00 Unknown AST 21 (13-39) U/L Troponin I High Sens 24.6 H 26.8 H (0-20) pg/ml B-Natriuretic Peptide 538 H (0-100) pg/ml Coagulation 07/01/25 Range/Units 12:00 PT 10.5 (9.0-12.0) Seconds APTT 27 (21-31) Seconds B-Natriuretic Peptide 538 H (0-100) pg/ml CBC 07/01/25 07/02/25 Range/Units 12:00 06:16 WBC 7.07 5.51 (4.8-10.8) K/ul RBC 4.69 L 4.40 L (4.70-6.10) M/uL Hgb 14.7 13.5 L (14.0-18.0) g/dL Hct 43.9 41.7 L (42.0-52.0) % Plt Count 213 186 (130-400) K/uL Neut # (Auto) 5.49 (1.40-6.50) K/uL Lymph # (Auto) 1.09 L (1.20-3.40) K/uL Sherman # (Auto) 0.39 (0.11-0.59) K/uL Eos # (Auto) 0.04 (0.00-0.50) K/uL Baso # (Auto) 0.04 (0.00-0.20) K/uL Comprehensive Metabolic Panel 07/01/25 07/02/25 Range/Units 12:00 06:16 Sodium 138 139 (136-145) mmol/L Potassium 4.6 4.2 (3.5-5.1) mmol/L Chloride 107 106 (98-107) mmol/L Carbon Dioxide 25 27 (21-32) mmol/L BUN 17 18 (6-23) mg/dl Creatinine 0.87 0.90 (0.6-1.4) mg/dl Glucose 118 H 116 H (70-99(Fasting)) mg/dl Calcium 8.8 8.6 (8.6-10.3) mg/dl AST 21 (13-39) U/L ALT 30 (7-52) U/L Alkaline Phosphatase 47 (34-104) U/L Total Protein 7.3 (6.0-8.3) gm/dl Albumin 4.2 (3.4-5.0) gm/dl Intake and Output 07/01/25 07/02/25 07/02/25 22:59 06:59 14:59 Intake Total 360 / 360 Balance 360 / 360 Intake: Oral 360 / 360 Other: # Unmeasured Voids 500 Weight 111.4 kg Weight Measurement Method Standing Scale Diagnostic Findings Telemetry reviewed: NSR in the 70-80's. Occ PVC EKG reviewed: NSR with PVC's incomplete LBBB ST/T wave abnormality in inferior and lateral leads These findings are similar to EKG last admission Chest X-Ray 07/01/25 11:56 XR chest 1V portable CLINICAL HISTORY: Chest pain, nonspecific COMPARISON STUDY: Chest radiograph June 26, 2025. FINDINGS: Lung volumes are normal. There are suspected trace bilateral pleural effusions. Cardiomegaly is unchanged. Mediastinal contours are stable. Pulmonary edema has improved since prior exam. There is no consolidation to suggest pneumonia. Mild bibasilar densities or atelectasis. IMPRESSION: 1. Cardiomegaly. Interval resolution of pulmonary edema since chest radiograph of June 26, 2025. 2. Suspected trace bilateral pleural effusions. ACT 112: Negative or not required by law. Electronically signed by: Francesco Mendoza M.D. 07/01/2025 12:31 PM Echo reviewed from last admission 06/26/2025: There is mild global left ventricular hypokinesis with mild reduction in the left ventricular systolic function LVEF in the range of 40 to 45% Grade II diastolic dysfunction noted (moderate dysfunction) moderate left atrial lodgment Mild aortic valve sclerosis without stenosis Compared to the previous study dated 05/19/2015, the left ventricular ejection fraction was graded to be 45 to 50% at that time Medications Administered Current Inpatient Medications Acetaminophen (Acetaminophen 325 Mg Tab) 650 mg PO Q4H PRN PRN Reason: pain/fever Stop: 07/31/25 15:50 Allopurinol (Allopurinol 100 Mg Tab) 100 mg PO QAM FERN Stop: 08/01/25 08:59 Last Admin: 07/02/25 08:40 Dose: 100 mg Aspirin (Aspirin 81 Mg Ectab) 81 mg PO DAILY FERN Stop: 08/01/25 08:59 Last Admin: 07/02/25 08:40 Dose: 81 mg Enoxaparin Sodium (Enoxaparin Inj 40 Mg/0.4 Ml Syr) 40 mg SQ Q24H FERN Stop: 07/31/25 16:59 Last Admin: 07/01/25 16:37 Dose: 40 mg Folic Acid (Folic Acid 1 Mg Tab) 1 mg PO DAILY FERN Stop: 08/01/25 08:59 Last Admin: 07/02/25 08:40 Dose: 1 mg Furosemide (Furosemide 40 Mg/4 Ml Vial) 40 mg IV [id number] FERN Stop: 07/31/25 16:59 Last Admin: 07/02/25 08:40 Dose: 40 mg Losartan Potassium (Losartan Potassium 50 Mg Tab) 50 mg PO HS FERN Stop: 07/31/25 20:59 Last Admin: 07/01/25 21:05 Dose: 50 mg Metoprolol Succinate (Metoprolol Succ 50mg Ext Rel Tab) 50 mg PO BID FERN Stop: 07/31/25 20:59 Last Admin: 07/02/25 08:40 Dose: 50 mg Multivitamins (Multivitamin Tab) 1 tab PO QAM [facility] Stop: 08/01/25 08:59 Last Admin: 07/02/25 08:40 Dose: 1 tab Ondansetron HCl (Ondansetron Inj 2 Mg/Ml 2 Ml Vial) 4 mg IV Q6H PRN PRN Reason: Nausea Stop: 07/31/25 15:50 Polyethylene Glycol (Polyethylene (Miralax) 17 Gm Pack) 17 gm PO DAILY PRN PRN Reason: Constipation Stop: 07/31/25 15:50 Potassium Chloride (Potassium Chloride Crtab 20 Meq Tabcr) [facility] Stop: 08/01/25 08:59 Last Admin: 07/02/25 08:40 Dose: 20 meq Rosuvastatin Calcium (Rosuvastatin Calcium 20 Mg Tab) 20 mg PO QAM [facility] Stop: 08/01/25 08:59 Last Admin: 07/02/25 08:40 Dose: 20 mg Spironolactone (Spironolactone 25 Mg Tab) [facility] Stop: 08/01/25 08:59 Last Admin: 07/02/25 08:39 Dose: 25 mg Tamsulosin HCl (Tamsulosin Hcl 0.4 Mg Cap) [facility] [place] Stop: 08/01/25 08:59 Last Admin: 07/02/25 08:40 Dose: 0.4 mg Thiamine HCl (Thiamine Hcl 100 Mg Tab) 100 mg PO DAILY [facility] Stop: 08/01/25 08:59 Last Admin: 07/02/25 08:40 Dose: 100 mg PG Care Time/CCT Total # of Minutes Spent Total Time Spent with Patient: Total time spent is greater than 50% in coordination of care (as documented) at patient's floor/unit and/or counseling patient: 60 minutes Coding Level of Care Code 78624 ER DEPT VISIT HIGH LVL 5 Diagnoses Acute HFrEF (heart failure with reduced ejection fraction) I50.21 Hypertension I10
--- NOTE | 2025-07-02 11:56 | Hospitalist Progress Note ---
Date of Service July 02, 2025 Assessment & Plan (1) Acute HFrEF (heart failure with reduced ejection fraction): (2) Elevated troponin: (3) Hypertension: (4) Hyperlipidemia: (5) Gout: (6) BPH (benign prostatic hyperplasia): Plan 74 year old male with PMH significant for HFrEF, hypertension, hyperlipidemia, prediabetes, BPH, chronic gout, and morbid obesity who presents to the ED on 07/01/2025 with orthopnea and SOB. Patient was recently admitted from 06/26- 06/28/2025 with acute HFrEF. Acute on chronic HFrEF Patient presenting with orthopnea and SOB since evening [employer] Recent admission from 06/26-06/28 with med changes per Cardiology - patient notes compliance TTE on 06/26 revealed EF 40-45%, mild global hypokinesis of LV, grade II DD, mod dilation left atrium, mild aortic valve sclerosis without stenosis BNP 538, elevated from prior CXR slightly improved from prior -IV lasix 40mg bid, pt feels better w/ breathing - will get nocturnal pulse ox. -Daily weights -I&Os -Cardio onboard, appreciate comangement Elevated troponin Troponin 24 with repeat pending - decreased from prior admission EKG without signs of ischemia Hypertension: Continue losartan Hyperlipidemia: Continue statin Gout: Continue allopurinol BPH: Continue tamsulosin DVT Prophylaxis: SQ Lovenox Code Status: DNR/DNI PCP: Dr Sherwin Magana Admission and Anticipated Discharge Date Admission Date: July 01, 2025 Subjective Pt was seen and examined at bedside. Patient was sitting up in bed, on room air, NAD, resting comfortably. Patient reports improvement in his breathing, now he is able to lie flat. Pt denies F/ST/C/Chest pain. Physical Exam Physical Exam: General Appearance: Morbidly obese, no apparent distress Head: normocephalic, Atraumatic Eyes: normal inspection, EOMI Neck: supple, Trachea midline Respiratory/Chest: Normal breath sounds, basal crackles, No accessory muscle use Cardiovascular: S1, S2, No murmur Abdomen/GI:Soft, Non tender, Bowel sounds present Extremities/Musculoskeletal:normal inspection, 1-2+ B/L LE edema Neurologic/Psych:AAOX3, grossly no focal neurological deficits Skin: normal color, warm,+ eczematous rash on back Results & Data Results & Data Vital Signs (Past 12 Hours) Vital Signs Temp Pulse Pulse Resp BP Pulse Ox O2 Del Method 07/02/25 11:17 36.3 C L 53 L 16 130/68 94 Room Air 07/02/25 09:17 Room Air 07/02/25 07:59 36.6 C 70 16 123/79 91 Room Air 07/02/25 05:45 75 07/02/25 03:47 36.5 C 80 18 125/78 95 Room Air
[2025-07-02] MEDS: VALSARTAN/SACUBITRIL 26/24MG TAB PO SCH (20:43)
[2025-07-02] MEDS: ALBUT/IPRATROP 3MG/0.5MG NEB 3 ML VIAL NEB STA (22:19)
[2025-07-02] MEDS: OPTIRAY 320 125ml IV ONE (23:25)
--- NOTE | 2025-07-02 23:47 | Communication Note ---
Date of Service: July 02, 2025 12, 10 PM Patient complaining of SOB as per RN. RR 20 to 30s. No chest pain or cough symptoms. Chest x-ray as per my interpretation atelectasis AP Shortness of breath Rule out PE CT chest PE study 07/03, 1:45 AM Made aware [address] CT angio chest results 1. Pulmonary embolism in right upper lobe subsegmental artery. 2. Bibasilar atelectasis. Few small peripheral nodular densities, mostly in area of atelectasis. Fleischner Society Guidelines suggest no follow-up is necessary for patients with a low or high risk of malignancy AP Acute PE First occurrence as per patient Rule out LV clot a source IV heparin LE venous Dopplers rule out DVT in a.m.
[2025-07-03] MEDS: SODIUM CHLORIDE 0.65% NA SOLN 45 ML (OCEAN) PRN (01:34)
--- NOTE | 2025-07-03 01:39 | CT Scan Report ---
Exam(s): CTA CHEST IV Amt: 118 ML OPTIRAY 320 EXAM: CT Angiography Chest With Intravenous Contrast CLINICAL HISTORY: Reason for exam: sob. TECHNIQUE: Axial computed tomographic angiography images of the chest with intravenous contrast. CTDI is 28.02 mGy and DLP is 985.95 mGy-cm. Automated exposure control was utilized for the study. A dose lowering technique was utilized adhering to the principles of ALARA. MIP reconstructed images were created and reviewed. COMPARISON: Chest x-ray dated 07/02/2025 FINDINGS: Pulmonary arteries: Pulmonary embolism in right upper lobe subsegmental artery. Series 4, image 145. Aorta: No acute findings. No thoracic aortic aneurysm. Lungs: Bibasilar atelectasis. Few small peripheral nodular densities, mostly in area of atelectasis. No mass. Pleural space: Unremarkable. No significant effusion. No pneumothorax. Heart: Coronary calcifications. No cardiomegaly. No significant pericardial effusion. No evidence of RV dysfunction. Bones/joints: No acute fracture. No dislocation. Soft tissues: Unremarkable. Lymph nodes: Unremarkable. No enlarged lymph nodes. IMPRESSION: 1. Pulmonary embolism in right upper lobe subsegmental artery. 2. Bibasilar atelectasis. Few small peripheral nodular densities, mostly in area of atelectasis. Fleischner Society Guidelines suggest no follow-up is necessary for patients with a low or high risk of malignancy. Communications: Call Doctor Pulmonary Embolism Electronically signed by: Stalin Walden M.D. 07/03/25 01:38 AM
--- NOTE | 2025-07-03 01:41 | XRay Report ---
Exam(s): XR CXR 1 VIEW EXAM: XR Chest, 1 View CLINICAL HISTORY: Reason for exam: sob. TECHNIQUE: Frontal view of the chest. COMPARISON: XR Chest dated 07/01/2025 FINDINGS: Lungs: Mild bibasilar atelectasis. Pleural space: Unremarkable. No pneumothorax. Heart: Unremarkable. No cardiomegaly. Mediastinum: Unremarkable. Normal mediastinal contour. Bones/joints: Degenerative changes of the spine. Old right clavicular fracture deformity. IMPRESSION: Mild bibasilar atelectasis. Electronically signed by: Stalin Walden M.D. 07/03/25 01:40 AM
[2025-07-03] MEDS ORDERED: ENOXAPARIN 1 MG/KG SC SCH (02:00)
[2025-07-03] MEDS ORDERED: ENOXAPARIN INJ 120 MG/0.8 ML SYR SQ SCH (02:30)
[2025-07-03 03:27] LABS: Hematocrit (blood only) 42.5 % (42.0-52.0); Hemoglobin 14.1 g/dL (14.0-18.0); Mean Corpuscular Hemoglobin 31.0 pg (25.0-34.0); Mean Corpuscular Volume 93.4 fL (80.0-100.0); Platelet Count 184 K/uL (130-400); RDW Standard Deviation 45.4 fL (36.4-46.3); Red Blood Count 4.55 M/uL (4.70-6.10); White Blood Count 5.96 K/ul (4.8-10.8)
[2025-07-03 03:44] LABS: Anion Gap 9.0 (3-11); Blood Urea Nitrogen 23.0 mg/dl (6-23); Calcium 9.0 mg/dl (8.6-10.3); Carbon Dioxide 26.0 mmol/L (21-32); Chloride 104.0 mmol/L (98-107); Creatinine Clr Calc Pharmacy 64.9 ml/min; Glucose 118.0 mg/dl (70-99(Fasting)); Magnesium 2.1 mg/dl (1.7-2.4); Potassium 3.9 mmol/L (3.5-5.1); Sodium 139.0 mmol/L (136-145)
[2025-07-03] MEDS: HEPARIN 25000 UNIT/500 ML D5W 25,000 UNITS/500 ML BAG IV SCH (03:47)
[2025-07-03] MEDS: Heparin IV Adult Wt-Based Standard *NO* INITIAL Bolus Protocol IV STA (03:54)
[2025-07-03 04:10] LABS: Partial Thromboplastin Time 26 Seconds (21-31)
--- NOTE | 2025-07-03 08:59 | Ultrasound Report ---
BILATERAL LOWER EXTREMITY VENOUS DOPPLER HISTORY: Acute pain and swelling of the lower legs swelling, pe COMPARISON STUDY: None. FINDINGS: There is normal compressibility, flow, and augmentation within the bilateral lower extremit y deep venous systems. Subcutaneous edema. There is a complex fluid collection within the right popli teal fossa suggestive of a probable Payton's cyst measuring 7.8 x 1.5 x 5.9 cm. IMPRESSION: No DVT within the right or left lower extremity. ACT 112: Negative or not required by law. Electronically signed by: Peyman Woodward M.D. 07/03/2025 8:58 AM
--- NOTE | 2025-07-03 10:10 | Cardiology Progress Note ---
Date of Service July 03, 2025 Assessment & Plan (1) Acute HFrEF (heart failure with reduced ejection fraction): (2) Hypertension: (3) Pulmonary embolus: Plan Patient is a 74 year old male who was admitted with signs/symptoms of acute on chronic HFrEF with dyspnea, orthopnea, weight gain, edema. Recently admitted last week for similar symptoms - LVEF 40-45%. Treated with IV Lasix and started on appropriate medical therapies on discharge. No prior ischemic evaluation. (Apparently LVEF was 45% in 2015) Patient reports compliance with meds at home, but non compliance with diet/fluid intake. Started on Furosemide 40 mg IV BID on admission. Good urine outputs recorded over the last 24 hours. Continue Furosemide 40 mg IV BID today. Possible transition to oral diuretic tomorrow. Daily weight with standing scale. Fluid restriction of 1500 ml Low sodium diet. Continue spironolactone 25 mg daily Continue metoprolol 50 mg BID Losartan discontinued in favor of Entresto 26/24 mg BID, first dose last night. BP controlled and stable renal function. Continue ASA and statin. Minimally elevated troponin but flat around 25. This is improved from last weeks admission. Not indicative of ACS. Patient with worsening SOB overnight and diagnosed with acute pulmonary embolus. Started on IV heparin. will need oral anticoagulation upon discharge No DVT per venous duplex. No need for urgent ischemic evaluation. Now that he has PE, will need at least 3 months of uninterrupted anticoagulation. Consider future nuclear stress test as outpatient. Case discussed with Dr. Osorio I spent a total of 35 minutes on the date of service in preparation, delivery, and documentation of the care provided to this patient, excluding any time spent in the performance of separately billed services. Svetlana Vanessa PA-C Department of Cardiology, [facility] This chart was completed in part utilizing Speech Voice Recognition Software. Grammatical errors, random word insertions, pronoun errors, and incomplete sentences are an occasional consequence of this system due to software limitations, ambient noise, and hardware issues. Any formal questions or concerns about the content, text, or information contained within the body of this dictation should be directly addressed to the provider for clarification. Admission and Anticipated Discharge Date Admission Date: July 01, 2025 Supervising Physician Co-Signing Physician Notes I have personally performed a history and physical examination on the patient. I have reviewed the advance practitioner's documentation, and I agree with, and take responsibility for the plan of care. 74-year-old male presents with recurrent acute decompensated heart failure with mildly reduced ejection fraction. Evaluated with CTA of the chest last night due to acute dyspnea. Right upper lobe pulmonary embolus identified. Patient treated with IV heparin. Diuresing well with 3.6 L urine output overnight. Renal function remains stable. Clinically improving. Denies chest pain or heaviness. Sinus rhythm on telemetry. Recommendations: * Continue IV diuresis with furosemide 40 mg twice daily * IV heparin with transition to Eliquis for treatment of pulmonary embolus * Transition losartan to Entresto * Continue Toprol-XL and spironolactone. * Consider addition of Jardiance during hospitalization as blood pressure allows. * Monitor fluid balance, daily, GFR, and electrolytes. * 1.5 g sodium restriction. * 1.5 L fluid restriction during hospitalization. Dale Osorio DO, [facility] I spent a total of 30 minutes on the date of service in preparation, delivery, and documentation of the care provided to this patient, excluding any time spent in the performance of separately billed services. Subjective Patient resting in bed comfortably. Reports last night he was experiencing worsening SOB at rest. Evaluated by drawbridge tender and sent for chest CT which revealed small pulmonary embolusim in the right upper lobe subsegmental artery. Started on IV heparin. venous duplex was negative for DVT. Symptoms improving this morning. He noted frequent urination yesterday. Good outputs. Weight down. Volume status improving. Review of Systems Review of Systems: All systems reviewed & are unremarkable except as noted in HPI & below Physical Exam Constitutional: WD/WN, vitals as above + obese; no acute distress Neck: + thick neck Respiratory: no labored breathing and not tachypneic Auscultation: + crackles (B/L) Cardiovascular: Rate/Rhythm: regular rate and regular rhythm Vessels: + JVD Extremities: + edema (1+ pretibial edema b/l with stasis changes) Gastrointestinal (Abdomen): Inspection/Auscultation: + abdomen distended Percussion/Palpation: abdomen soft; abdomen nontender Neurologic: PERRL, EOMI, accommodation nl, no face palsy, no dysarthria Results & Data Vital Signs (Past 12 Hours) Vital Signs Temp Pulse Pulse Pulse Resp BP Pulse Ox 07/03/25 08:05 36.6 C 69 16 115/76 94 07/03/25 07:22 76 07/03/25 02:20 80 07/03/25 01:58 36.7 C 76 16 130/80 92 07/02/25 22:49 36.6 C 75 18 122/78 92 07/02/25 22:20 80 16 95 Pulse Ox O2 Del Method O2 Del Method 07/03/25 08:05 Room Air 07/03/25 07:22 07/03/25 02:20 94 Room Air 07/03/25 01:58 Room Air 07/02/25 22:49 Room Air 07/02/25 22:20 Room Air Laboratory Results Coagulation 07/03/25 Range/Units 03:02 APTT 26 (21-31) Seconds CBC 07/03/25 Range/Units 03:02 WBC 5.96 (4.8-10.8) K/ul RBC 4.55 L (4.70-6.10) M/uL Hgb 14.1 (14.0-18.0) g/dL Hct 42.5 (42.0-52.0) % Plt Count 184 (130-400) K/uL Comprehensive Metabolic Panel 07/03/25 Range/Units 03:02 Sodium 139 (136-145) mmol/L Potassium 3.9 (3.5-5.1) mmol/L Chloride 104 (98-107) mmol/L Carbon Dioxide 26 (21-32) mmol/L BUN 23 (6-23) mg/dl Creatinine 1.21 D (0.6-1.4) mg/dl Glucose 118 H (70-99(Fasting)) mg/dl Calcium 9.0 (8.6-10.3) mg/dl Intake and Output 07/02/25 07/03/25 07/03/25 22:59 06:59 14:59 Output Total 900 / 4200 300 / 4200 Balance -900 / -3930 -300 / -3930 Output: Urine 900 / 4200 300 / 4200 Diagnostic Findings Telemetry reviewed: NSR in the 70-80's. Occ PVC Chest CTA report reviewed form 07/02: IMPRESSION: 1. Pulmonary embolism in right upper lobe subsegmental artery. 2. Bibasilar atelectasis. Few small peripheral nodular densities, mostly in area of atelectasis. Fleischner Society Guidelines suggest no follow-up is necessary for patients with a low or high risk of malignancy. Venous duplex report reviewed dated 07/03: IMPRESSION: No DVT within the right or left lower extremity. Medications Administered Current Inpatient Medications Acetaminophen (Acetaminophen 325 Mg Tab) 650 mg PO Q4H PRN PRN Reason: pain/fever Stop: 07/31/25 15:50 Allopurinol (Allop[facility]ol 100 Mg Tab) [facility] [place] Stop: 08/01/25 08:59 Last Admin: 07/03/25 09:29 Dose: 100 mg Aspirin (Aspirin 81 Mg Ectab) 81 mg PO DAILY [facility] Stop: 08/01/25 08:59 Last Admin: 07/03/25 09:29 Dose: 81 mg Folic Acid (Folic Acid 1 Mg Tab) 1 mg PO DAILY [facility] Stop: 08/01/25 08:59 Last Admin: 07/03/25 09:29 Dose: 1 mg Furosemide (Furosemide 40 Mg/4 Ml Vial) 40 mg IV [id number] [facility] Stop: 07/31/25 16:59 Last Admin: 07/03/25 09:30 Dose: 40 mg Heparin Sodium/Dextrose (Heparin 79476 Unit/500 Ml D5w) 25,000 units in 500 mls @ 31 mls/hr IV .Q16H8M [facility]; Protocol Stop: 08/02/25 02:44 Last Admin: 07/03/25 03:47 Dose: 1,550 units/hr, 31 mls/hr Metoprolol Succinate (Metoprolol Succ 50mg Ext Rel Tab) 50 mg PO BID [facility] Stop: 07/31/25 20:59 Last Admin: 07/03/25 09:29 Dose: 50 mg Multivitamins (Multivitamin Tab) 1 tab PO [facility] Stop: 08/01/25 08:59 Last Admin: 07/03/25 09:29 Dose: 1 tab Ondansetron HCl (Ondansetron Inj 2 Mg/Ml 2 Ml Vial) 4 mg IV Q6H PRN PRN Reason: Nausea Stop: 07/31/25 15:50 Polyethylene Glycol (Polyethylene (Miralax) 17 Gm Pack) 17 gm PO DAILY PRN PRN Reason: Constipation Stop: 07/31/25 15:50 Potassium Chloride (Potassium Chloride Crtab 20 Meq Tabcr) 20 meq [facility] [place] Stop: 08/01/25 08:59 Last Admin: 07/03/25 09:33 Dose: 20 meq Rosuvastatin Calcium (Rosuvastatin Calcium 20 Mg Tab) 20 mg PO QAM [facility] Stop: 08/01/25 08:59 Last Admin: 07/03/25 09:29 Dose: 20 mg Sacubitril/Valsartan (Valsartan/Sacubitril 26/24mg Tab) 1 tab PO BID [facility] Stop: 08/01/25 20:59 Last Admin: 07/03/25 09:30 Dose: 1 tab Sodium Chloride (Sodium Chloride 0.65% Na Soln 45 Ml ([place])) 2 sprays NA TID PRN PRN Reason: Nasal Congestion Stop: 08/02/25 01:22 Last Admin: 07/03/25 01:34 Dose: 2 sprays Spironolactone (Spironolactone 25 Mg Tab) 25 mg [facility] [place] Stop: 08/01/25 08:59 Last Admin: 07/03/25 09:28 Dose: 25 mg Tamsulosin HCl (Tamsulosin Hcl 0.4 Mg Cap) 0.4 mg PO [facility] Stop: 08/01/25 08:59 Last Admin: 07/03/25 09:35 Dose: 0.4 mg Thiamine HCl (Thiamine Hcl 100 Mg Tab) 100 mg PO DAILY [facility] Stop: 08/01/25 08:59 Last Admin: 07/03/25 09:29 Dose: 100 mg PG Care Time/CCT Total # of Minutes Spent Total Time Spent with Patient: Total time spent is greater than 50% in coordination of care (as documented) at patient's floor/unit and/or counseling patient: 35 minutes Coding Level of Care Code 51085 SUB INP/OBS CARE 3/50MIN Diagnoses Acute HFrEF (heart failure with reduced ejection fraction) I50.21 Hypertension I10 Pulmonary embolus I26.99
[2025-07-03 10:40] LABS: ANTI-Xa, UFH(UnfractionatedHep 0.40 IU/ml (0.3-0.7)
--- NOTE | 2025-07-03 11:57 | Hospitalist Progress Note ---
Date of Service July 03, 2025 Assessment & Plan (1) Acute HFrEF (heart failure with reduced ejection fraction): (2) Elevated troponin: (3) Hypertension: (4) Hyperlipidemia: (5) Gout: (6) BPH (benign prostatic hyperplasia): (7) Pulmonary embolus: Plan 74 year old male with PMH significant for HFrEF, hypertension, hyperlipidemia, prediabetes, BPH, chronic gout, and morbid obesity who presents to the ED on 07/01/2025 with orthopnea and SOB. Patient was recently admitted from 06/26- 06/28/2025 with acute HFrEF. 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 06/26-06/28 with med changes per Cardiology - patient notes compliance TTE on 06/26 revealed EF 40-45%, mild global hypokinesis of LV, grade II DD, mod dilation left atrium, mild aortic valve sclerosis without stenosis BNP 538, elevated from prior CXR slightly improved from prior IV lasix 40mg bid, pt feels better w/ breathing Appreciate cardiology input and recommendation Cumulative negative balance of 3332 mL Clinically he feels a lot better with decreasing shortness of breath and decreasing swelling of the legs Nocturnal pulse oximetry did not show any requirements of oxygen Pulmonary embolism Involving right upper lobe subsegmental artery Negative DVTs in legs Has been on intravenous heparin and likely will change on oral Eliquis on discharge Elevated troponin Troponin 24 with repeat pending - decreased from prior admission EKG without signs of ischemia Hypertension: Continue losartan Hyperlipidemia: Continue statin Gout: Continue allopurinol BPH: Continue tamsulosin DVT Prophylaxis: Has been on intravenous heparin due to pulmonary embolism Code Status: DNR/DNI PCP: Dr Sherwin Magana Admission and Anticipated Discharge Date Admission Date: July 01, 2025 Subjective 07/03/2025 The patient was seen and examined in medical telemetry unit He has been feeling little better with decreasing shortness of breath and decreasing swelling of the legs Denies any chest pain and/or palpitation Complains of minimal nonspecific abdominal pain without nausea or vomiting Review of Systems Review of Systems: All systems reviewed and are unremarkable except as noted below Physical Exam Physical Exam: Lying in bed without any acute distress Constitutional: well developed, well nourished, + ill appearing and + obese Eyes: PERRL, conjunctivae normal, anicteric sclerae ENMT: external ear and nose normal, oropharynx normal Neck: trachea midline, no thyromegaly Respiratory: no respiratory distress Auscultation: + diminished lung sounds and + crackles ( minimal bibasilar crackles) Cardiovascular: Rate/Rhythm: regular rate and regular rhythm; not tachycardic Heart Sounds: normal S1 and normal S2; no murmur Extremities: + edema ( trace to 1+ edema bilaterally) Gastrointestinal (Abdomen): Inspection/Auscultation: + abdomen distended and normal bowel sounds Percussion/Palpation: abdomen soft; abdomen nontender Musculoskeletal: No acute arthritis involving any of the joint Neurologic: normal touch/pain/proprioception and moves all extremities; no focal motor deficits Psychiatric: A+Ox3, euthymic affect Lymphatic: no cervical or axillary lymphadenopathy Results & Data Results & Data Vital Signs (Past 12 Hours) Vital Signs Temp Pulse Pulse Pulse Resp BP Pulse Ox 07/03/25 08:05 36.6 C 69 16 115/76 94 07/03/25 07:22 76 07/03/25 02:20 80 07/03/25 01:58 36.7 C 76 16 130/80 92 Pulse Ox O2 Del Method O2 Del Method 07/03/25 08:05 Room Air 07/03/25 07:22 07/03/25 02:20 94 Room Air 07/03/25 01:58 Room Air Laboratory Results Short CBC 07/03/25 Range/Units 03:02 WBC 5.96 (4.8-10.8) K/ul Hgb 14.1 (14.0-18.0) g/dL Hct 42.5 (42.0-52.0) % Plt Count 184 (130-400) K/uL [facility] 07/03/25 03:02 Sodium 139 Potassium 3.9 Chloride 104 Carbon Dioxide 26 BUN 23 Creatinine 1.21 D Glucose 118 H Calcium 9.0 Medications Administered Current Inpatient Medications Acetaminophen (Acetaminophen 325 Mg Tab) 650 mg PO Q4H PRN PRN Reason: pain/fever Stop: 07/31/25 15:50 Allopurinol (Allopurinol 100 Mg Tab) 100 mg PO QAM [facility] Stop: 08/01/25 08:59 Last Admin: 07/03/25 09:29 Dose: 100 mg Aspirin (Aspirin 81 Mg Ectab) 81 mg PO DAILY [facility] Stop: 08/01/25 08:59 Last Admin: 07/03/25 09:29 Dose: 81 mg Folic Acid (Folic Acid 1 Mg Tab) 1 mg PO DAILY [facility] Stop: 08/01/25 08:59 Last Admin: 07/03/25 09:29 Dose: 1 mg Furosemide (Furosemide 40 Mg/4 Ml Vial) 40 mg IV [id number] [facility] Stop: 07/31/25 16:59 Last Admin: 07/03/25 09:30 Dose: 40 mg Heparin Sodium/Dextrose (Heparin 80931 Unit/500 Ml D5w) 25,000 units in 500 mls @ 31 mls/hr IV .Q16H8M [facility]; Protocol Stop: 08/02/25 02:44 Last Titration: 07/03/25 11:27 Dose: 1,550 units/hr, 31 mls/hr Metoprolol Succinate (Metoprolol Succ 50mg Ext Rel Tab) 50 mg PO BID [facility] Stop: 07/31/25 20:59 Last Admin: 07/03/25 09:29 Dose: 50 mg Multivitamins (Multivitamin Tab) 1 tab PO [facility] Stop: 08/01/25 08:59 Last Admin: 07/03/25 09:29 Dose: 1 tab Ondansetron HCl (Ondansetron Inj 2 Mg/Ml 2 Ml Vial) 4 mg IV Q6H PRN PRN Reason: Nausea Stop: 07/31/25 15:50 Polyethylene Glycol (Polyethylene (Miralax) 17 Gm Pack) 17 gm PO DAILY PRN PRN Reason: Constipation Stop: 07/31/25 15:50 Potassium Chloride (Potassium Chloride Crtab 20 Meq Tabcr) 20 meq PO [facility] Stop: 08/01/25 08:59 Last Admin: 07/03/25 09:33 Dose: 20 meq Rosuvastatin Calcium (Rosuvastatin Calcium 20 Mg Tab) 20 mg PO [facility] Stop: 08/01/25 08:59 Last Admin: 07/03/25 09:29 Dose: 20 mg Sacubitril/Valsartan (Valsartan/Sacubitril 26/24mg Tab) 1 tab PO BID [facility] Stop: 08/01/25 20:59 Last Admin: 07/03/25 09:30 Dose: 1 tab Sodium Chloride (Sodium Chloride 0.65% Na Soln 45 Ml ([place])) 2 sprays NA TID PRN PRN Reason: Nasal Congestion Stop: 08/02/25 01:22 Last Admin: 07/03/25 01:34 Dose: 2 sprays Spironolactone (Spironolactone 25 Mg Tab) [address] [facility] [place] Stop: 08/01/25 08:59 Last Admin: 07/03/25 09:28 Dose: 25 mg Tamsulosin HCl (Tamsulosin Hcl 0.4 Mg Cap) 0.[address] [facility] [place] Stop: 08/01/25 08:59 Last Admin: 07/03/25 09:35 Dose: 0.4 mg Thiamine HCl (Thiamine Hcl 100 Mg Tab) 100 mg PO DAILY [facility] Stop: 08/01/25 08:59 Last Admin: 07/03/25 09:29 Dose: 100 mg
[2025-07-03] MEDS: COUGH DROP (SUGAR FREE) LOZ 24 LOZ/1 BOX BUCCAL PRN (21:46)
[2025-07-04 01:15] LABS: Influenza A virus by PCR Negative (Neg); Influenza B virus by PCR Negative (Neg); SARS CoV2 RNA(COVID-19) Ceph NEGATIVE (Negative)
[2025-07-04 05:49] LABS: Hematocrit (blood only) 43.5 % (42.0-52.0); Hemoglobin 14.8 g/dL (14.0-18.0); Immature Granulocytes # (auto) 0.01 K/uL (0.01-0.20); Immature Granulocytes % (auto) 0.1 %; Mean Corpuscular Hemoglobin 31.4 pg (25.0-34.0); Mean Corpuscular Volume 92.2 fL (80.0-100.0); Platelet Count 215 K/uL (130-400); RDW Standard Deviation 44.5 fL (36.4-46.3); Red Blood Count 4.72 M/uL (4.70-6.10); White Blood Count 9.15 K/ul (4.8-10.8)
[2025-07-04 06:09] LABS: ANTI-Xa, UFH(UnfractionatedHep 0.43 IU/ml (0.3-0.7)
[2025-07-04 06:19] LABS: Anion Gap 8.0 (3-11); Calcium 8.8 mg/dl (8.6-10.3); Carbon Dioxide 28.0 mmol/L (21-32); Chloride 102.0 mmol/L (98-107); Magnesium 2.0 mg/dl (1.7-2.4); Potassium 3.9 mmol/L (3.5-5.1); Sodium 138.0 mmol/L (136-145)
[2025-07-04 06:24] LABS: Blood Urea Nitrogen 29.0 mg/dl (6-23); Creatinine Clr Calc Pharmacy 55.7 ml/min; Glucose 142.0 mg/dl (70-99(Fasting))
--- NOTE | 2025-07-04 06:41 | XRay Report ---
EXAM: XR chest 1V portable CLINICAL HISTORY: cough TECHNIQUE: An X-ray image of the chest is obtained in AP projection. COMPARISON: None. FINDINGS: Mildly blunted left costophrenic angle.- possibility of mild pleural thickening/effusion Rest of both lungs are clear. The cardiomediastinal silhouette is within normal limits. No acute osseous abnormality. IMPRESSION: Mildly blunted left costophrenic angle.- possibility of mild pleural thickening/effusion-stable. No other new interval abnormality since prior study. Electronically signed by Mynor Simmons 07-04-2025 06:41 AM
--- NOTE | 2025-07-04 08:24 | Cardiology Progress Note ---
Date of Service July 04, 2025 Assessment & Plan (1) Acute HFrEF (heart failure with reduced ejection fraction): (2) Hypertension: (3) Pulmonary embolus: Plan Assessment: Patient is a 74 year old male who was admitted with signs/symptoms of acute on chronic HFrEF with dyspnea, orthopnea, weight gain, edema. Recently admitted last week for similar symptoms - LVEF 40-45%. Treated with IV Lasix and started on appropriate medical therapies on discharge. No prior ischemic evaluation. (Apparently LVEF was 45% in 2014) Plan 07/04/2025: -patient demonstrates clinical improvement from a cardiac perspective. -He reports medication compliance at home, but not with his diet or fluid intake -Strict I&O and daily weights with a standing scale. when appropirate for discharge he will need to keep a weight log from morning weights to trend. -Low sodium (less then 2G per day) diet -1500ml fluid restriction -Close monitoring of renal function and serum electrolytes. Goal serum K > 4.0 and Serum Mag > 2.0 -Review of I&O/weight summary shows -354ml fluid balance this AM and -7kg weight deficit. -Slight decrease in renal function (Cr. 1.41 today) -Currently receiving Furosemide 40mg IV BID, will discuss with Dr. Osorio for readiness to transition to PO diuretic therapies. -Continue Entresto, Spironolactone, Crestor, Potassium chloride, and ASA 81mg as per current regimen. -Chest xray shows stable pleural effusion, slight improvement. -Continues on Heparin gtt per primary team for recent diagnosis of acute PE--he will not require a minimum of 3 months uninterrupted anticoagulation -Troponin elevation minimal on admission, no need for urgent ischemic evaluation especially in the setting of an acute PE. May consider nuclear stress test outpatient in the future. Case has been discussed with Dr. Osorio. Further recommendations regarding plan of care as per his assessment. I spent a total of 30 minutes on the date of service in preparation, delivery, documentation of the care provided to the patient excluding any time spent in the performance of separately billed services. JOANNE Friedman [facility] Admission and Anticipated Discharge Date Admission Date: July 03, 2025 Supervising Physician Co-Signing Physician Notes I have personally performed a history and physical examination on the patient. I have reviewed the advance practitioner's documentation, and I agree with, and take responsibility for the plan of care. 74-year-old male presents with recurrent acute decompensated heart failure with mildly reduced ejection fraction. Evaluated with CTA of the chest 07/02/2025 acute dyspnea. Right upper lobe pulmonary embolus identified. Patient treated with IV heparin. Diuresing well, however, creatinine trending upward over the past 48 hours. Clinically improving. Orthopnea/PND has resolved. Denies chest pain or heaviness. Sinus rhythm on telemetry. Recommendations: * Discontinue IV diuresis * Transition to oral diuretic therapy in a.m. 07/05/2025 pending review of lab studies * IV heparin with transition to Eliquis for treatment of pulmonary embolus * Losartan transitioned to Entresto * Continue Toprol-XL and spironolactone. * Consider addition of Jardiance as outpatient. * Monitor fluid balance, daily, GFR, and electrolytes. * 1.5 g sodium restriction. * 1.5 L fluid restriction during hospitalization. * Outpatient ischemic evaluation * Possible discharge in 24-48 hours Dale Osorio DO, [facility] I spent a total of 30 minutes on the date of service in preparation, delivery, and documentation of the care provided to this patient, excluding any time spent in the performance of separately billed services. Subjective 07/04/2025: Patient seen and examined in follow up today. Feeling well from a cardiac perspective. Offers no acute concerns. Labs, vitals, diagnostics, telemetry and documentation reviewed. Telemetry reviewed showing SR with occasional PVCs and occasional bigeminy. Rates 70's-80's. Weight: -7kg per record review Review of Systems Review of Systems: All systems reviewed & are unremarkable except as noted in HPI & below Physical Exam Constitutional: well developed and well nourished; no acute distress and not ill appearing Neck: normal visual inspection and trachea midline Cardiovascular: Rate/Rhythm: regular rate and regular rhythm Heart Sounds: normal S1 and normal S2; no murmur Skin: no rashes, warm and dry Psychiatric: A+Ox3, euthymic affect Results & Data Vital Signs (Past 12 Hours) Vital Signs Temp Pulse Pulse Resp BP BP Pulse Ox 07/04/25 08:00 36.5 C 50 L 18 107/67 92 07/04/25 03:33 36.7 C 84 18 137/79 94 12/03/25 23:00 36.7 C 75 18 140/84 94 07/03/25 22:06 82 O2 Del Method 07/04/25 08:00 Room Air 07/04/25 03:33 Room Air 07/03/25 23:00 Room Air 07/03/25 22:06 Laboratory Results CBC 07/04/25 Range/Units 05:34 WBC 9.15 (4.8-10.8) K/ul RBC 4.72 (4.70-6.10) M/uL Hgb 14.8 (14.0-18.0) g/dL Hct 43.5 (42.0-52.0) % Plt Count 215 (130-400) K/uL Neut # (Auto) 6.74 H (1.40-6.50) K/uL Lymph # (Auto) 1.53 (1.20-3.40) K/uL Allen # (Auto) 0.76 H (0.11-0.59) K/uL Eos # (Auto) 0.06 (0.00-0.50) K/uL Baso # (Auto) 0.05 (0.00-0.20) K/uL Comprehensive Metabolic Panel 07/04/25 Range/Units 05:34 Sodium 138 (136-145) mmol/L Potassium 3.9 (3.5-5.1) mmol/L Chloride 102 (98-107) mmol/L Carbon Dioxide 28 (21-32) mmol/L BUN 29 H (6-23) mg/dl Creatinine 1.41 H (0.6-1.4) mg/dl Glucose 142 H (70-99(Fasting)) mg/dl Calcium 8.8 (8.6-10.3) mg/dl Intake and Output 07/03/25 07/04/25 07/04/25 22:59 06:59 14:59 Intake Total 387.333 / 1416.550 311.55 / 1416.550 17.05 17.05 Output Total 300 / 1550 350 / 1550 Balance 87.333 / -133.450 -38.45 / -133.450 17.05 / 17.05 Intake: IV 262.333 / 811.550 311.55 / 811.550 17.05 / 17.05 Heparin 12098 Unit/500 ml D5w 262.333 / 811.550 311.55 / 811.550 17.05 / 17.05 25,000 units In 500 ml @ 1,550 UNITS/HR 31 mls/hr IV .Q16H8M [facility] Rx#:[id number] Oral 125 / 605 Output: Urine 300 / 1550 350 / 1550 PG Care Time/CCT Total # of Minutes Spent Total Time Spent with Patient: Total time spent is greater than 50% in coordination of care (as documented) at patient's floor/unit and/or counseling patient: Coding Level of Care Code 11263 SUB INP/OBS CARE 3/50MIN Diagnoses Acute HFrEF (heart failure with reduced ejection fraction) I50.21 Hypertension I10 Pulmonary embolus I26.99 Time Spent (min) 30
--- NOTE | 2025-07-04 13:43 | Hospitalist Progress Note ---
Date of Service July 04, 2025 Assessment & Plan (1) Acute HFrEF (heart failure with reduced ejection fraction): (2) Elevated troponin: (3) Hypertension: (4) Hyperlipidemia: (5) Gout: (6) BPH (benign prostatic hyperplasia): (7) Pulmonary embolus: Plan 74 year old male with PMH significant for HFrEF, hypertension, hyperlipidemia, prediabetes, BPH, chronic gout, and morbid obesity who presents to the ED on 07/01/2025 with orthopnea and SOB. Patient was recently admitted from 06/26- 06/28/2025 with acute HFrEF. Acute on chronic HFrEF Patient presenting with orthopnea and SOB since evening [employer] Recent admission from 06/26-06/28 with med changes per Cardiology - patient notes compliance TTE on 06/26 revealed EF 40-45%, mild global hypokinesis of LV, grade II DD, mod dilation left atrium, mild aortic valve sclerosis without stenosis BNP 538, elevated from prior CXR slightly improved from prior IV lasix 40mg bid, pt feels better w/ breathing Appreciate cardiology input and recommendation Cumulative negative balance of 3332 mL Clinically he feels a lot better with decreasing shortness of breath and decreasing swelling of the legs Nocturnal pulse oximetry did not show any requirements of oxygen Condition much improved with cumulative fluid balance of -3686 mL Will continue intravenous Lasix for today and likely discharge tomorrow Kidney function is a little worse and will monitor CRP for tomorrow with electrolytes Pulmonary embolism Involving right upper lobe subsegmental artery Negative DVTs in legs Has been on intravenous heparin and likely will change on oral Eliquis on discharge Will give him Eliquis on discharge Elevated troponin Troponin 24 with repeat pending - decreased from prior admission EKG without signs of ischemia Hypertension: Continue losartan Hyperlipidemia: Continue statin Gout: Continue allopurinol BPH: Continue tamsulosin DVT Prophylaxis: Has been on intravenous heparin due to pulmonary embolism Code Status: DNR/DNI PCP: Dr Sherwin Magana Admission and Anticipated Discharge Date Admission Date: July 03, 2025 Subjective 07/03/2025 The patient was seen and examined in medical telemetry unit He has been feeling little better with decreasing shortness of breath and decreasing swelling of the legs Denies any chest pain and/or palpitation Complains of minimal nonspecific abdominal pain without nausea or vomiting 07/04/2025 The patient was seen and examined in medical telemetry unit He has been feeling a lot better and denies any shortness of breath at rest His legs swelling is better too He has been ambulating in the room and in the hallway without any difficulties Review of Systems Review of Systems: All systems reviewed and are unremarkable except as noted below Physical Exam Physical Exam: Lying in bed without any acute distress Constitutional: well developed, well nourished, + ill appearing and + obese Eyes: PERRL, conjunctivae normal, anicteric sclerae ENMT: external ear and nose normal, oropharynx normal Neck: trachea midline, no thyromegaly Respiratory: no respiratory distress Auscultation: + diminished lung sounds and + crackles ( minimal bibasilar crackles) Cardiovascular: Rate/Rhythm: regular rate and regular rhythm; not tachycardic Heart Sounds: normal S1 and normal S2; no murmur Extremities: + edema ( trace to 1+ edema bilaterally) Gastrointestinal (Abdomen): Inspection/Auscultation: + abdomen distended and normal bowel sounds Percussion/Palpation: abdomen soft; abdomen nontender Musculoskeletal: No acute arthritis involving any of the joint Neurologic: normal touch/pain/proprioception and moves all extremities; no focal motor deficits Psychiatric: A+Ox3, euthymic affect Lymphatic: no cervical or axillary lymphadenopathy Results & Data Results & Data Vital Signs (Past 12 Hours) Vital Signs Temp Pulse Pulse Resp BP BP Pulse Ox 07/04/25 11:03 36.6 C 86 20 104/59 L 92 07/04/25 08:29 86 07/04/25 08:00 07/04/25 08:00 36.5 C 50 L 18 107/67 92 07/04/25 03:33 36.7 C 84 18 137/79 94 O2 Del Method 07/04/25 11:03 Room Air 07/04/25 08:29 07/04/25 08:00 Room Air 07/04/25 08:00 Room Air 07/04/25 03:33 Room Air Laboratory Results Short CBC 07/04/25 Range/Units 05:34 WBC 9.15 (4.8-10.8) K/ul Hgb 14.8 (14.0-18.0) g/dL Hct 43.5 (42.0-52.0) % Plt Count 215 (130-400) K/uL BMP 07/04/25 05:34 Sodium 138 Potassium 3.9 Chloride 102 Carbon Dioxide 28 BUN 29 H Creatinine 1.41 H Glucose 142 H Calcium 8.8 Medications Administered Current Inpatient Medications Acetaminophen (Acetaminophen 325 Mg Tab) 650 mg PO Q4H PRN PRN Reason: pain/fever Stop: 07/31/25 15:50 Allopurinol (Allopurinol 100 Mg Tab) 100 mg PO QAM [facility] Stop: 08/01/25 08:59 Last Admin: 07/04/25 08:54 Dose: 100 mg Aspirin (Aspirin 81 Mg Ectab) 81 mg PO DAILY [facility] Stop: 08/01/25 08:59 Last Admin: 07/04/25 08:54 Dose: 81 mg Folic Acid (Folic Acid 1 Mg Tab) 1 mg PO DAILY [facility] Stop: 08/01/25 08:59 Last Admin: 07/04/25 08:54 Dose: 1 mg Guaifenesin (Guaifenesin Sugar Free 200 Mg/10 Ml Udc) 200 mg PO Q6H PRN PRN Reason: Cough Stop: 08/03/25 06:03 Last Admin: 07/04/25 06:25 Dose: 200 mg Heparin Sodium/Dextrose (Heparin 05712 Unit/500 Ml D5w) 25,000 units in 500 mls @ 31 mls/hr IV .Q16H8M [facility]; Protocol Stop: 08/02/25 02:44 Last Titration: 07/04/25 07:01 Dose: 1,550 units/hr, 31 mls/hr Menthol (Cough Drop (Sugar Free) Santy 24 Santy/1 Box) 1 santy BUCCAL Q2H PRN PRN Reason: Sore Throat Stop: 08/02/25 21:00 Last Admin: 07/03/25 21:46 Dose: 1 santy Metoprolol Succinate (Metoprolol Succ 50mg Ext Rel Tab) 50 mg PO BID [facility] Stop: 07/31/25 20:59 Last Admin: 07/04/25 08:54 Dose: 50 mg Multivitamins ([facility]ivitamin Tab) [facility] [place] Stop: 08/01/25 08:59 Last Admin: 07/04/25 08:54 Dose: 1 tab Ondansetron HCl (Ondansetron Inj 2 Mg/Ml 2 Ml Vial) 4 mg IV Q6H PRN PRN Reason: Nausea Stop: 07/31/25 15:50 Polyethylene Glycol (Polyethylene (Miralax) 17 Gm Pack) 17 gm PO DAILY PRN PRN Reason: Constipation Stop: 07/31/25 15:50 Potassium Chloride (Potassium Chloride Crtab 20 Meq Tabcr) 20 meq PO QAM [facility] Stop: 08/01/25 08:59 Last Admin: 07/04/25 08:57 Dose: 20 meq Rosuvastatin Calcium (Rosuvastatin Calcium 20 Mg Tab) 20 mg PO QAM [facility] Stop: 08/01/25 08:59 Last Admin: 07/04/25 08:54 Dose: 20 mg Sacubitril/Valsartan (Valsartan/Sacubitril 26/24mg Tab) 1 tab PO BID [facility] Stop: 08/01/25 20:59 Last Admin: 07/04/25 08:54 Dose: 1 tab Sodium Chloride (Sodium Chloride 0.65% Na Soln 45 Ml ([place])) 2 sprays NA TID PRN PRN Reason: Nasal Congestion Stop: 08/02/25 01:22 Last Admin: 07/03/25 21:46 Dose: 2 sprays Spironolactone (Spironolactone 25 Mg Tab) [facility] [place] Stop: 08/01/25 08:59 Last Admin: 07/04/25 08:55 Dose: 25 mg Tamsulosin HCl (Tamsulosin Hcl 0.4 Mg Cap) 0.4 mg PO QAM [facility] Stop: 08/01/25 08:59 Last Admin: 07/04/25 08:54 Dose: 0.4 mg Thiamine HCl (Thiamine Hcl 100 Mg Tab) 100 mg PO DAILY [facility] Stop: 08/01/25 08:59 Last Admin: 07/04/25 08:54 Dose: 100 mg
[2025-07-04] MEDS: LORATADINE 10 MG TAB PO ONE (20:24)
[2025-07-04] MEDS: BENZONATATE 100 MG CAPSULE PO ONE (20:24)
[2025-07-05 07:36] LABS: Anion Gap 8.0 (3-11); Blood Urea Nitrogen 28.0 mg/dl (6-23); Carbon Dioxide 27.0 mmol/L (21-32); Chloride 103.0 mmol/L (98-107); Creatinine Clr Calc Pharmacy 66.5 ml/min; Glucose 130.0 mg/dl (70-99(Fasting)); Magnesium 2.1 mg/dl (1.7-2.4); Potassium 4.1 mmol/L (3.5-5.1); Sodium 138.0 mmol/L (136-145)
[2025-07-05 07:39] LABS: ANTI-Xa, UFH(UnfractionatedHep 0.46 IU/ml (0.3-0.7)
[2025-07-05 08:25] LABS: Calcium 8.8 mg/dl (8.6-10.3)
[2025-07-05] MEDS ORDERED: BENZONATATE 100 MG CAPSULE PO PRN (09:00)
[2025-07-05] MEDS: APIXABAN 5 MG TABLET PO SCH (09:51)
--- NOTE | 2025-07-05 10:12 | Cardiology Progress Note ---
Date of Service July 05, 2025 Assessment & Plan (1) Acute HFrEF (heart failure with reduced ejection fraction): (2) Hypertension: (3) Pulmonary embolus: Plan Assessment: Patient is a 74 year old male who was admitted with signs/symptoms of acute on chronic HFrEF with dyspnea, orthopnea, weight gain, edema. Recently admitted last week for similar symptoms - LVEF 40-45%. Treated with IV Lasix and started on appropriate medical therapies on discharge. No prior ischemic evaluation. (Apparently LVEF was 45% in 2015) Plan 07/05/2025: -Patient continues to shows clinical improvement from a cardiac perspective. -weight deficit of -9kg -Ok to restart oral diuretics. Plan is to start Furosemide 40mg by mouth daily, first dose today and then continue on discharge. -Stressed the importance of daily morning weights after first void and keeping a log. -Reinforced low sodium diet and fluid restriction -Recommended to consider purchasing a med container to help outline his medications and avoid missed doses. -Kidney function stable. Serum electrolytes stable. patient Will need non- fasting labs within 1-2 weeks of discharge (CBC and BMP) -patient demonstrates clinical improvement from a cardiac perspective. -Newly diagnosed PE. Patient has been transitioned to PO Eliquis (PE dosing); he will require a minimum of at least 3 months oral anticoagulation. -Troponin elevation minimal on admission, no need for urgent ischemic evaluation especially in the setting of an acute PE. May consider nuclear stress test outpatient in the future. -Patient will need outpatient cardiology follow up within 4 weeks. Office will contact. -Continue ASA 81mg, Toprol xl 50mg PO BID, Potassium Chloride 20meq Daily, Crestor 20mg daily, Spironolactone 25mg daily, and Entresto 26/24mg PO BID. Case has been discussed with Dr. Osorio. Further recommendations regarding plan of care as per his assessment. I spent a total of 30 minutes on the date of service in preparation, delivery, documentation of the care provided to the patient excluding any time spent in the performance of separately billed services. JOANNE Friedman [facility] Admission and Anticipated Discharge Date Admission Date: July 03, 2025 Supervising Physician Co-Signing Physician Notes I have personally performed a history and physical examination on the patient. I have reviewed the advance practitioner's documentation, and I agree with, and take responsibility for the plan of care. 74-year-old male presents with recurrent acute decompensated heart failure with mildly reduced ejection fraction. Evaluated with CTA of the chest 07/02/2025 acute dyspnea. Right upper lobe pulmonary embolus identified. Patient treated with IV heparin. Diuresing well, however, creatinine trending upward 07/04/2025 prompting discontinue of IV Lasix. Creatinine has returned to baseline this morning. Orthopnea/PND has resolved. Denies chest pain or heaviness. Sinus rhythm on telemetry. Recommendations: * Resume oral furosemide 40 mg daily * IV heparin with transition to Eliquis for treatment of pulmonary embolus * Losartan transitioned to Entresto during hospitalization * Continue Toprol-XL and spironolactone. * Consider addition of Jardiance as outpatient. * Monitor fluid balance, daily, GFR, and electrolytes. * 1.5 g sodium restriction. * 1.5 L fluid restriction during hospitalization. * Outpatient ischemic evaluation * Patient may be discharged to home today from a cardiovascular perspective. * Outpatient cardiology follow up scheduled 07/26/2025. Dale Osorio DO, [facility] I spent a total of 30 minutes on the date of service in preparation, delivery, and documentation of the care provided to this patient, excluding any time spent in the performance of separately billed services. Subjective 07/05/2025: Patient seen and examined in follow up today. Feeling well from a cardiac perspective, offers no acute cardiac concerns. He is resting comfortably out of bed in the chair. Does endorse some "mild" shortness of breath with ambulation. No Chest pain, pressure or palpitations. Labs, vitals, diagnostics, telemetry and documentation reviewed. Telemetry reviewed showing SR with PVC rates 70-80bpm Review of Systems Review of Systems: All systems reviewed & are unremarkable except as noted in HPI & below Physical Exam Constitutional: well developed and well nourished; no acute distress and not ill appearing Neck: normal visual inspection and trachea midline Respiratory: normal respiratory effort, lungs clear to auscultation Cardiovascular: Rate/Rhythm: regular rate and regular rhythm Heart Sounds: normal S1 and normal S2; no murmur Vessels: dorsalis pedis pulses present; no JVD Skin: no rashes, warm and dry Psychiatric: A+Ox3, euthymic affect Results & Data Vital Signs (Past 12 Hours) Vital Signs Temp Pulse Resp BP BP Pulse Ox O2 Del Method 07/05/25 07:50 36.8 C 74 16 123/72 95 Room Air 07/05/25 02:53 36.5 C 78 18 114/71 93 Room Air 07/04/25 22:39 36.6 C 86 20 123/73 94 Room Air Laboratory Results Comprehensive Metabolic Panel 07/05/25 Range/Units 06:37 Sodium 138 (136-145) mmol/L Potassium 4.1 (3.5-5.1) mmol/L Chloride 103 (98-107) mmol/L Carbon Dioxide 27 (21-32) mmol/L BUN 28 H (6-23) mg/dl Creatinine 1.17 (0.6-1.4) mg/dl Glucose 130 H (70-99(Fasting)) mg/dl Calcium 8.8 (8.6-10.3) mg/dl Intake and Output 07/04/25 07/05/25 07/05/25 22:59 06:59 14:59 Intake Total 392.717 / 1088.450 407.283 / 1088.450 34.5 / 34.5 Output Total 400 / 800 400 / 800 Balance -7.283 / 288.450 7.283 / 288.450 34.5 / 34.5 Intake: IV 192.717 / 688.450 307.283 / 688.450 34.5 / 34.5 Heparin 05541 Unit/500 ml D5w 192.717 / 688.450 307.283 / 688.450 34.5 / 34.5 25,000 units In 500 ml @ 1,550 UNITS/HR 31 mls/hr IV .Q16H8M [facility] Rx#:[id number] Oral 200 / 400 100 / 400 Output: Urine 400 / 800 400 / 800 Other: Weight 109.5 kg Weight Measurement Method Standing Scale PG Care Time/CCT Total # of Minutes Spent Total Time Spent with Patient: Total time spent is greater than 50% in coordination of care (as documented) at patient's floor/unit and/or counseling patient: Coding Level of Care Code 48548 SUB INP/OBS CARE 3/50MIN Diagnoses Acute HFrEF (heart failure with reduced ejection fraction) I50.21 Hypertension I10 Pulmonary embolus I26.99 Time Spent (min) 30
[2025-07-05] MEDS: FUROSEMIDE 40 MG TAB PO SCH (10:21)
--- NOTE | 2025-07-05 11:38 | Hospitalist Progress Note ---
Date of Service July 05, 2025 Assessment & Plan (1) Acute HFrEF (heart failure with reduced ejection fraction): (2) Elevated troponin: (3) Hypertension: (4) Hyperlipidemia: (5) Gout: (6) BPH (benign prostatic hyperplasia): (7) Pulmonary embolus: Plan 74 year old male with PMH significant for HFrEF, hypertension, hyperlipidemia, prediabetes, BPH, chronic gout, and morbid obesity who presents to the ED on 07/01/2025 with orthopnea and SOB. Patient was recently admitted from 06/26- 06/28/2025 with acute HFrEF. Acute on chronic HFrEF Patient presenting with orthopnea and SOB since evening [employer] Recent admission from 06/26-06/28 with med changes per Cardiology - patient notes compliance TTE on 06/26 revealed EF 40-45%, mild global hypokinesis of LV, grade II DD, mod dilation left atrium, mild aortic valve sclerosis without stenosis BNP 538, elevated from prior CXR slightly improved from prior IV lasix 40mg bid, pt feels better w/ breathing Appreciate cardiology input and recommendation Cumulative negative balance of 3332 mL Clinically he feels a lot better with decreasing shortness of breath and decreasing swelling of the legs Nocturnal pulse oximetry did not show any requirements of oxygen Condition much improved with cumulative fluid balance of -3686 mL Will continue intravenous Lasix for today and likely discharge tomorrow Kidney function is a little worse and will monitor CRP for tomorrow with electrolytes His kidney function has improved a lot and he remains free from any symptoms He has been ambulating in the room and in the hallway without any difficulties He will be discharged home this afternoon Pulmonary embolism Involving right upper lobe subsegmental artery Negative DVTs in legs Has been on intravenous heparin and likely will change on oral Eliquis on discharge Will give him Eliquis on discharge Eliquis 10 mg twice daily for 7 days and then 5 mg twice daily to continue Heparin has been discontinued Elevated troponin Troponin 24 with repeat pending - decreased from prior admission EKG without signs of ischemia Hypertension: Continue losartan Hyperlipidemia: Continue statin Gout: Continue allopurinol BPH: Continue tamsulosin DVT Prophylaxis: Has been on intravenous heparin due to pulmonary embolism Code Status: DNR/DNI PCP: Dr Sherwin Magana Admission and Anticipated Discharge Date Admission Date: July 03, 2025 Subjective 07/03/2025 The patient was seen and examined in medical telemetry unit He has been feeling little better with decreasing shortness of breath and decreasing swelling of the legs Denies any chest pain and/or palpitation Complains of minimal nonspecific abdominal pain without nausea or vomiting 07/04/2025 The patient was seen and examined in medical telemetry unit He has been feeling a lot better and denies any shortness of breath at rest His legs swelling is better too He has been ambulating in the room and in the hallway without any difficulties 07/05/2025 The patient was seen and examined in medical telemetry unit He has been feeling much better with improvement of leg swelling and denies any shortness of breath at rest He was evaluated by wax ball knock out worker this morning and will be discharged home this afternoon Review of Systems Review of Systems: All systems reviewed and are unremarkable except as noted below Physical Exam Physical Exam: Lying in bed without any acute distress Constitutional: well developed, well nourished, + ill appearing and + obese Eyes: PERRL, conjunctivae normal, anicteric sclerae ENMT: external ear and nose normal, oropharynx normal Neck: trachea midline, no thyromegaly Respiratory: no respiratory distress Auscultation: + diminished lung sounds and + crackles ( minimal bibasilar crackles) Cardiovascular: Rate/Rhythm: regular rate and regular rhythm; not tachycardic Heart Sounds: normal S1 and normal S2; no murmur Extremities: + edema ( trace to 1+ edema bilaterally) Gastrointestinal (Abdomen): Inspection/Auscultation: + abdomen distended and normal bowel sounds Percussion/Palpation: abdomen soft; abdomen nontender Musculoskeletal: No acute arthritis involving any of the joint Neurologic: normal touch/pain/proprioception and moves all extremities; no focal motor deficits Psychiatric: A+Ox3, euthymic affect Lymphatic: no cervical or axillary lymphadenopathy Results & Data Results & Data Vital Signs (Past 12 Hours) Vital Signs Temp Pulse Resp BP Pulse Ox O2 Del Method 07/05/25 10:07 Room Air 07/05/25 07:50 36.8 C 74 16 123/72 95 Room Air 07/05/25 02:53 36.5 C 78 18 114/71 93 Room Air Laboratory Results [facility] 07/05/25 06:37 Sodium 138 Potassium 4.1 Chloride 103 Carbon Dioxide 27 BUN 28 H Creatinine 1.17 Glucose 130 H Calcium 8.8 Medications Administered Current Inpatient Medications Acetaminophen (Acetaminophen 325 Mg Tab) 650 mg PO Q4H PRN PRN Reason: pain/fever Stop: 07/31/25 15:50 Allopurinol (Allopurinol 100 Mg Tab) 100 mg PO QAM [facility] Stop: 08/01/25 08:59 Last Admin: 07/05/25 08:18 Dose: 100 mg Apixaban (Apixaban 5 Mg Tablet) 10 mg PO BID [facility] Stop: 07/11/25 21:01 Last Admin: 07/05/25 09:51 Dose: 10 mg Aspirin (Aspirin 81 Mg Ectab) 81 mg PO DAILY [facility] Stop: 08/01/25 08:59 Last Admin: 07/05/25 08:17 Dose: 81 mg Benzonatate (Benzonatate 100 Mg Capsule) 100 mg PO TID PRN PRN Reason: Cough Stop: 08/04/25 08:59 Folic Acid (Folic Acid 1 Mg Tab) 1 mg PO DAILY [facility] Stop: 08/01/25 08:59 Last Admin: 07/05/25 08:17 Dose: 1 mg [facility]urosemide ([facility]semide 40 Mg Tab) [facility] Stop: 08/04/25 09:59 Last Admin: 07/05/25 10:21 Dose: 40 mg Menthol (Cough Drop (Sugar Free) Santy 24 Santy/1 Box) 1 santy BUCCAL Q2H PRN PRN Reason: Sore Throat Stop: 08/02/25 21:00 Last Admin: 07/03/25 21:46 Dose: 1 santy Metoprolol Succinate (Metoprolol Succ 50mg Ext Rel Tab) 50 mg PO BID [facility] Stop: 07/31/25 20:59 Last Admin: 07/05/25 08:17 Dose: 50 mg Multivitamins (Multivitamin Tab) 1 tab PO [facility] Stop: 08/01/25 08:59 Last Admin: 07/05/25 08:18 Dose: 1 tab Ondansetron HCl (Ondansetron Inj 2 Mg/Ml 2 Ml Vial) 4 mg IV Q6H PRN PRN Reason: Nausea Stop: 07/31/25 15:50 Polyethylene Glycol (Polyethylene (Miralax) 17 Gm Pack) 17 gm PO DAILY PRN PRN Reason: Constipation Stop: 07/31/25 15:50 Potassium Chloride (Potassium Chloride Crtab 20 Meq Tabcr) 20 meq [facility] Stop: 08/01/25 08:59 Last Admin: 07/05/25 08:16 Dose: 20 meq Rosuvastatin Calcium (Rosuvastatin Calcium 20 Mg Tab) [facility] Stop: 08/01/25 08:59 Last Admin: 07/05/25 08:17 Dose: 20 mg Sacubitril/Valsartan (Valsartan/Sacubitril 26/24mg Tab) 1 tab PO BID [facility] Stop: 08/01/25 20:59 Last Admin: 07/05/25 08:16 Dose: 1 tab Sodium Chloride (Sodium Chloride 0.65% Na Soln 45 Ml ([place])) 2 sprays NA TID PRN PRN Reason: Nasal Congestion Stop: 08/02/25 01:22 Last Admin: 07/03/25 21:46 Dose: 2 sprays Spironolactone (Spironolactone 25 Mg Tab) 25 mg PO [facility] Stop: 08/01/25 08:59 Last Admin: 07/05/25 08:17 Dose: 25 mg Tamsulosin HCl (Tamsulosin Hcl 0.4 Mg Cap) 0.4 mg PO [facility] Stop: 08/01/25 08:59 Last Admin: 07/05/25 08:17 Dose: 0.4 mg Thiamine HCl (Thiamine Hcl 100 Mg Tab) 100 mg PO DAILY [facility] Stop: 08/01/25 08:59 Last Admin: 07/05/25 08:17 Dose: 100 mg
[2025-07-05 12:04] VITALS: RESP 20; TEMP 97.7; O2SAT 94
[2025-07-05 12:45] VITALS: BP 123/73; PULSE 84
--- NOTE | 2025-07-05 15:22 | Discharge Summary ---
Date of Service July 05, 2025 Admission HPI Per Admitting Provider 74 year old male with PMH significant for HFrEF, hypertension, hyperlipidemia, prediabetes, BPH, chronic gout, and morbid obesity who presents to the ED on 07/01/2025 with orthopnea. Patient was recently admitted from 06/26-06/28/2025 with acute HFrEF. Patient reports he was doing okay since discharge until last night in the middle of the night when he woke up at 0200 feeling like he was drowning and had a panic attack. He reports he usually sleeps elevated and must have slid down while sleeping. He notes SOB at rest and with exertion and inability to take a deep breath approximately every third breath. He was told to return to the hospital if his symptoms do not get better, which is why he sought evaluation. He has not weighed himself at home and is unsure if his legs are more swollen. He reports compliance with the medications that were prescribed by recommendation of Cardiology at discharge two days ago. He denies fevers, chills, cough, chest pain, abdominal pain, N/V. We discussed admission for IV d iuretics versus discussion with Cardiology for titration of medications to be taken at home but patient opted for admission and IV diuretics. Admission Exam Per Admitting Provider Vitals signs as noted above General Appearance: Morbidly obese, no apparent distress Head: normocephalic, Atraumatic Eyes: normal inspection, EOMI Neck: supple, Trachea midline Respiratory/Chest: Normal breath sounds, basal crackles, No accessory muscle use Cardiovascular: S1, S2, No murmur Abdomen/GI:Soft, Non tender, Bowel sounds present Extremities/Musculoskeletal:normal inspection, 2-3+ B/L LE edema Neurologic/Psych:AAOX3, grossly no focal neurological deficits Skin: normal color, warm,+ eczematous rash on back Principal Diagnosis Acute on chronic HFrEF, pulmonary embolism, hypertension Discharge Exam Lying in bed without any acute distress Constitutional well developed, well nourished, + ill appearing and + obese Eyes PERRL, conjunctivae normal, anicteric sclerae ENMT external ear and nose normal, oropharynx normal Neck trachea midline, no thyromegaly Respiratory no respiratory distress Auscultation: + diminished lung sounds and + crackles ( minimal bibasilar crackles) Cardiovascular Rate/Rhythm: regular rate and regular rhythm; not tachycardic Heart Sounds: normal S1 and normal S2; no murmur Extremities: + edema ( trace to 1+ edema bilaterally) Gastrointestinal (Abdomen) Inspection/Auscultation: + abdomen distended and normal bowel sounds Percussion/Palpation: abdomen soft; abdomen nontender Neurologic normal touch/pain/proprioception and moves all extremities; no focal motor deficits Psychiatric A+Ox3, euthymic affect Lymphatic no cervical or axillary lymphadenopathy Discharge Data Allergies Allergy/AdvReac Type Severity Reaction Status Date / Time Sulfa (Sulfonamide Allergy Unknown ? Verified 11/13/22 12:57 Antibiotics) Consultations 07/01/25 13:49 ED Decision to Admit Stat 07/01/25 15:51 Consult Cardiology Routine Ordered Studies 07/02/25 22:41 CT angio chest PE protocol Stat 07/03/25 08:00 US venous doppler LE Routine Hospital Course (1) Acute HFrEF (heart failure with reduced ejection fraction): (2) Elevated troponin: (3) Hypertension: (4) Hyperlipidemia: (5) Gout: (6) BPH (benign prostatic hyperplasia): (7) Pulmonary embolus: Plan 74 year old male with PMH significant for HFrEF, hypertension, hyperlipidemia, prediabetes, BPH, chronic gout, and morbid obesity who presents to the ED on 07/01/2025 with orthopnea and SOB. Patient was recently admitted from 06/26- 06/28/2025 with acute HFrEF. Acute on chronic HFrEF Patient presenting with orthopnea and SOB since evening [employer] Recent admission from 06/26-06/28 with med changes per Cardiology - patient notes compliance TTE on 06/26 revealed EF 40-45%, mild global hypokinesis of LV, grade II DD, mod dilation left atrium, mild aortic valve sclerosis without stenosis BNP 538, elevated from prior CXR slightly improved from prior IV lasix 40mg bid, pt feels better w/ breathing Appreciate cardiology input and recommendation Cumulative negative balance of 3332 mL Clinically he feels a lot better with decreasing shortness of breath and decreasing swelling of the legs Nocturnal pulse oximetry did not show any requirements of oxygen Condition much improved with cumulative fluid balance of -3686 mL Will continue intravenous Lasix for today and likely discharge tomorrow Kidney function is a little worse and will monitor CRP for tomorrow with electrolytes His kidney function has improved a lot and he remains free from any symptoms He has been ambulating in the room and in the hallway without any difficulties He will be discharged home this afternoon Pulmonary embolism Involving right upper lobe subsegmental artery Negative DVTs in legs Has been on intravenous heparin and likely will change on oral Eliquis on discharge Will give him Eliquis on discharge Eliquis 10 mg twice daily for 7 days and then 5 mg twice daily to continue Heparin has been discontinued Elevated troponin Troponin 24 with repeat pending - decreased from prior admission EKG without signs of ischemia Hypertension: Continue losartan Hyperlipidemia: Continue statin Gout: Continue allopurinol BPH: Continue tamsulosin DVT Prophylaxis: Has been on intravenous heparin due to pulmonary embolism Code Status: DNR/DNI PCP: Dr Sherwin Magana Total Time Total Time Spent Total Time Spent (In Minutes): 40 Minutes Discharge Plan Discharge Items Patient Disposition: Home - Self-Care Reason For Visit: CHF Discharge Diagnosis: Acute on chronic HFrEF, pulmonary embolism, hypertension Condition on Discharge: Good Activity: Resume your previous activity Non-emergency contact: Primary Care Provider Call non-emergency contact if: you have any medication questions and your symptoms worsen Follow-up/Referrals: Jagdeep Keyes DO [Formal Service Waiter] - 07/26/25 11:00 am Sherwin Magana DO [Primary Care Provider] - (07/09/2025 11:00 AM Provider: Sherwin Magana DO [facility] ) Diet: Heart Healthy Fluids: 1500ml (6 cups) Addtl Attending Provider Instructions: Please take precautions to avoid falls Keep taking Eliquis as advised and try not to miss a dose until being told by your physician Take your Lasix as advised Please keep appointments with your healthcare providers Pending Studies at Discharge: No Stand-Alone Forms: My [facility], Smoking Cessation Medications and DC Order Prescriptions: New benzonatate 100 mg Capsule 100 mg PO TID PRN (Reason: cough) Qty: 30 0RF Eliquis 5 mg Tablet 10 mg PO BID Qty: 73 0RF sacubitril-valsartan [Entresto] 24-26 mg Tablet 1 tab PO BID Qty: 60 0RF Continued allopurinol 100 mg tablet 100 mg PO QAM multivitamin Tablet 1 tab PO QAM aspirin 81 mg Tablet,Delayed Release (Dr/Ec) 81 mg PO DAILY Rx Instructions: ran out 1 month ago tamsulosin 0.4 mg capsule 0.4 mg PO QAM rosuvastatin 20 mg tablet 20 mg PO QAM folic acid 1 mg Tablet 1 mg PO DAILY Qty: 30 0RF Rx Instructions: ran out one month ago thiamine HCl (vitamin B1) 100 mg tablet 100 mg PO DAILY Qty: 30 0RF losartan 50 mg Tablet 50 mg PO HS Qty: 30 0RF furosemide 40 mg Tablet 40 mg PO QAM Qty: 30 0RF metoprolol succinate 50 mg Tablet Extended Release 24 Hr 50 mg PO BID Qty: 60 0RF spironolactone 25 mg Tablet 25 mg PO QAM Qty: 30 0RF potassium chloride 20 mEq Tablet,Er Particles/Crystals 20 meq PO QAM Qty: 30 0RF Discharge Orders: Discharge Order (Routine); Ordered 07/05/25 Ordered By: Yesenia Haider Admission Data Admit Date/Time: 07/03/25 11:48 Attending Provider: Yesenia Haider Admit Provider: Celestine Rich Primary Care Provider: Sherwin Magana Other Providers: Celestine Rich; Dale Osorio Rishikesh Other Interventions: Discharge Summary Assessment (RN) Last Done: 07/05/25 12:44
== END 2025-07-05 14:29 | disposition home or self-care (01) | DRG 175 ==
LOC: ED 11:35 → EDINP 11:35 → SUATTDRO 14:11 → 2N 15:50